=== PATIENT | female | born 1955 | race Caucasian/White ===

== ENCOUNTER 2020-08-23 09:50 | Outpatient (REF) | payer MEDICARE, MEDICAID, SELFPAY | END 2020-08-23 09:51 | disposition home or self-care (01) | LOC: HO.MAMMO 09:50 | PROVIDERS: Visit Provider Nurse Practitioner Family | DX: Z13.89 Encounter for screening for other disorder (principal) ==

== ENCOUNTER 2020-10-25 08:58 | Outpatient (REF) | payer MEDICARE, MEDICAID, SELFPAY ==
[2020-10-25 11:33] LABS: Estimated Average Glucose 217 mg/dL; Hemoglobin A1c % 9.2 %
[2020-10-25 12:33] LABS: Cholesterol 136 mg/dL; HDL Cholesterol 34 mg/dL; LDL Cholesterol Calculated 76 mg/dl; Triglycerides 133 mg/dL
[2020-10-25 12:34] LABS: Thyroid Stimulating Hormone 0.15 uIU/mL (0.32-4.0)
== END 2020-10-25 08:59 | disposition home or self-care (01) ==
LOC: HO.HMGCLDS 08:58
PROVIDERS: PCP Internal Medicine; Visit Provider Internal Medicine
DX: E11.9 Type 2 diabetes mellitus without complications (principal); E03.9 Hypothyroidism, unspecified
CPT/HCPCS: 36415; 80061; 83036; 84443

== ENCOUNTER 2021-01-25 07:20 | Outpatient (REF) | payer MEDICARE, MEDICAID, SELFPAY ==
[2021-01-25 12:11] LABS: Estimated Average Glucose 220 mg/dL; Hemoglobin A1c % 9.3 %
[2021-01-25 12:45] LABS: Glucose Fasting 295 mg/dL (60-99)
== END 2021-01-25 07:21 | disposition home or self-care (01) ==
LOC: HO.HMGCLDS 07:20
PROVIDERS: PCP Internal Medicine; Visit Provider Internal Medicine
DX: E11.65 Type 2 diabetes mellitus with hyperglycemia (principal)
CPT/HCPCS: 36415; 82947; 83036

== ENCOUNTER 2021-04-27 07:01 | Outpatient (REF) | payer MEDICARE, SELFPAY ==
[2021-04-27 11:39] LABS: MANUAL DIFF FLAG NO
[2021-04-27 11:49] LABS: Basophils Absolute Auto 0.1 X10*3/uL (0.0-0.2); Basophils Percent Auto 1.1 % (0-2); Eosinophils Absolute Auto 0.2 X10*3/uL (0.0-0.4); Eosinophils Percent Auto 2.2 % (0-4); Hematocrit 44.1 % (37.0-47.0); Hemoglobin 13.9 g/dl (12.0-16.0); Imm Gran Abs Auto 0.03 X10*3/uL (0.00-0.03); Imm Gran Pct Auto 0.4 % (0.0-0.4); Lymphocytes Percent Auto 24.8 % (20-40); Mean Corpuscular HGB Conc 31.5 g/dl (31.0-35.0); Mean Corpuscular Hemoglobin 28.5 pg (27.0-33.0); Mean Corpuscular Volume 90.4 fL (80.0-98.0); Mean Platelet Volume 10.8 fL (9.4-12.3); Monocytes Absolute Auto 0.5 X10*3/uL (0.1-1.2); Monocytes Percent Auto 6.3 % (2-11); Neutrophils Absolute Auto 5.4 x10*3/uL (2.0-8.3); Neutrophils Percent Auto 65.2 % (45-73); Platelet Count 219 X10*3/uL (160-400); Red Blood Count 4.88 X10*6/uL (4.20-5.50); Red Cell Distribution Width 13.7 % (11.0-16.0); White Blood Count 8.2 X10*3/uL (4.8-10.8)
[2021-04-27 12:06] LABS: Alanine Aminotransferase 35 U/L (0-31); Alkaline Phosphatase 105 U/L (39-117); Anion Gap 12 (12-20); Aspartate Amino Transferase 29 U/L (5-31); Bilirubin Total 0.8 mg/dL (0.0-1.0); Blood Urea Nitrogen 16 mg/dL (9-16); Calcium 9.3 mg/dL (8.4-10.2); Carbon Dioxide 31 mmol/L (22-29); Chloride 103 mmol/L (96-108); Cholesterol 123 mg/dL; Estimated Glomerular Filt Rate > 60; Glucose Fasting 216 mg/dL (60-99); HDL Cholesterol 36 mg/dL; LDL Cholesterol Calculated 69 mg/dl; Potassium 4.5 mmol/L (3.3-5.1); Sodium 141 mmol/L (135-145); Total Protein 7.1 g/dL (6.5-8.0); Triglycerides 94 mg/dL
[2021-04-27 12:19] LABS: Estimated Average Glucose 180 mg/dL; Hemoglobin A1c % 7.9 %
[2021-04-27 12:31] LABS: Thyroid Stimulating Hormone 0.17 uIU/mL (0.32-4.0)
[2021-04-27 18:44] LABS: Creatinine Urine 148.82 mg/dL; Microalbum/Creatinine Ratio Ur 22.1 ug/mg cr
== END 2021-04-27 07:02 | disposition home or self-care (01) ==
LOC: HO.HMGCLDS 07:01
PROVIDERS: Visit Provider Internal Medicine
DX: Z00.00 Encounter for general adult medical examination without abnormal findings (principal); E11.9 Type 2 diabetes mellitus without complications
CPT/HCPCS: 36415; 80053; 80061; 82043; 83036; 84443; 85025

== ENCOUNTER 2021-07-26 07:02 | Outpatient (REF) | payer OTHER, SELFPAY ==
[2021-07-26 11:26] LABS: MANUAL DIFF FLAG NO
[2021-07-26 11:32] LABS: Basophils Absolute Auto 0.1 X10*3/uL (0.0-0.2); Basophils Percent Auto 0.8 % (0-2); Eosinophils Absolute Auto 0.2 X10*3/uL (0.0-0.4); Eosinophils Percent Auto 2.2 % (0-4); Hematocrit 43.3 % (37.0-47.0); Hemoglobin 14.2 g/dl (12.0-16.0); Imm Gran Abs Auto 0.03 X10*3/uL (0.00-0.03); Imm Gran Pct Auto 0.4 % (0.0-0.4); Mean Corpuscular HGB Conc 32.8 g/dl (31.0-35.0); Mean Corpuscular Hemoglobin 28.7 pg (27.0-33.0); Mean Corpuscular Volume 87.7 fL (80.0-98.0); Mean Platelet Volume 10.5 fL (9.4-12.3); Monocytes Absolute Auto 0.6 X10*3/uL (0.1-1.2); Monocytes Percent Auto 7.4 % (2-11); Neutrophils Absolute Auto 4.9 x10*3/uL (2.0-8.3); Neutrophils Percent Auto 63.2 % (45-73); Platelet Count 213 X10*3/uL (160-400); Red Blood Count 4.94 X10*6/uL (4.20-5.50); Red Cell Distribution Width 13.1 % (11.0-16.0); White Blood Count 7.7 X10*3/uL (4.8-10.8)
[2021-07-26 11:49] LABS: Estimated Average Glucose 189 mg/dL; Hemoglobin A1c % 8.2 %
[2021-07-26 11:56] LABS: Alanine Aminotransferase 35 U/L (0-31); Albumin Level 3.9 g/dL (3.5-5.0); Alkaline Phosphatase 114 U/L (39-117); Anion Gap 11 (12-20); Aspartate Amino Transferase 22 U/L (5-31); Bilirubin Total 0.8 mg/dL (0.0-1.0); Blood Urea Nitrogen 13 mg/dL (9-16); Calcium 9.2 mg/dL (8.4-10.2); Carbon Dioxide 30 mmol/L (22-29); Chloride 104 mmol/L (96-108); Cholesterol 127 mg/dL; Estimated Glomerular Filt Rate > 60; Glucose Fasting 241 mg/dL (60-99); HDL Cholesterol 33 mg/dL; LDL Cholesterol Calculated 67 mg/dl; Potassium 4.5 mmol/L (3.3-5.1); Sodium 140 mmol/L (135-145); Triglycerides 136 mg/dL
[2021-07-26 12:16] LABS: Thyroid Stimulating Hormone 0.06 uIU/mL (0.32-4.0)
== END 2021-07-26 07:03 | disposition home or self-care (01) ==
LOC: HO.HMGCLDS 07:02
PROVIDERS: Visit Provider Internal Medicine
DX: Z00.00 Encounter for general adult medical examination without abnormal findings (principal); Z13.0 Encounter for screening for diseases of the blood and blood-forming organs and certain disorders involving the immune mechanism; E11.9 Type 2 diabetes mellitus without complications
CPT/HCPCS: 36415; 80053; 80061; 83036; 84443; 85025

== ENCOUNTER 2021-10-29 07:21 | Outpatient (REF) | payer OTHER, SELFPAY ==
[2021-10-29 11:41] LABS: Estimated Average Glucose 197 mg/dL; Hemoglobin A1c % 8.5 %
[2021-10-29 11:50] LABS: Glucose Fasting 264 mg/dL (60-99)
== END 2021-10-29 07:22 | disposition home or self-care (01) ==
LOC: HO.HMGCLDS 07:21
PROVIDERS: PCP Internal Medicine; Visit Provider Internal Medicine
DX: Z13.29 Encounter for screening for other suspected endocrine disorder (principal); E11.65 Type 2 diabetes mellitus with hyperglycemia
CPT/HCPCS: 36415; 82947; 83036; 84443

== ENCOUNTER 2022-01-25 06:59 | Outpatient (REF) | payer OTHER, SELFPAY ==
[2022-01-25 11:59] LABS: Cholesterol 116 mg/dL; HDL Cholesterol 37 mg/dL; LDL Cholesterol Calculated 62 mg/dl; Triglycerides 89 mg/dL
[2022-01-25 12:20] LABS: Thyroid Stimulating Hormone 0.06 uIU/mL (0.32-4.0)
[2022-01-25 12:59] LABS: Estimated Average Glucose 126 mg/dL
== END 2022-01-25 07:00 | disposition home or self-care (01) ==
LOC: HO.HMGCLDS 06:59
PROVIDERS: PCP Internal Medicine; Visit Provider Internal Medicine
DX: E11.9 Type 2 diabetes mellitus without complications (principal); E78.5 Hyperlipidemia, unspecified; E03.9 Hypothyroidism, unspecified
CPT/HCPCS: 36415; 80061; 83036; 84443

== ENCOUNTER 2022-05-20 06:51 | Outpatient (REF) | payer OTHER, SELFPAY ==
[2022-05-20 12:09] LABS: Estimated Average Glucose 114 mg/dL; Hemoglobin A1c % 5.6 %
[2022-05-20 12:38] LABS: Alanine Aminotransferase 19 U/L (0-31); Albumin Level 3.8 g/dL (3.5-5.0); Alkaline Phosphatase 117 U/L (39-117); Anion Gap 11 (12-20); Aspartate Amino Transferase 17 U/L (5-31); Bilirubin Total 0.7 mg/dL (0.0-1.0); Blood Urea Nitrogen 16 mg/dL (9-16); Calcium 8.9 mg/dL (8.4-10.2); Carbon Dioxide 31 mmol/L (22-29); Chloride 105 mmol/L (96-108); Cholesterol 139 mg/dL; Estimated Glomerular Filt Rate > 60; Glucose Fasting 141 mg/dL (60-99); HDL Cholesterol 40 mg/dL; LDL Cholesterol Calculated 82 mg/dl; Potassium 4.9 mmol/L (3.3-5.1); Sodium 142 mmol/L (135-145); Total Protein 6.6 g/dL (6.5-8.0); Triglycerides 88 mg/dL
== END 2022-05-20 06:52 | disposition home or self-care (01) ==
LOC: HO.HMGCLDS 06:51
PROVIDERS: PCP Internal Medicine; Visit Provider Internal Medicine
DX: N28.9 Disorder of kidney and ureter, unspecified (principal); R73.9 Hyperglycemia, unspecified; E78.5 Hyperlipidemia, unspecified
CPT/HCPCS: 36415; 80053; 80061; 83036

== ENCOUNTER 2022-12-27 09:04 | Outpatient (REF) | payer OTHER, SELFPAY ==
[2022-12-27 11:51] LABS: Estimated Average Glucose 126 mg/dL
[2022-12-27 12:29] LABS: Glucose Fasting 141 mg/dL (60-99)
[2022-12-27 12:49] LABS: Thyroid Stimulating Hormone 0.09 uIU/mL (0.32-4.0)
== END 2022-12-27 09:05 | disposition home or self-care (01) ==
LOC: HO.HMGCLDS 09:04
PROVIDERS: PCP Internal Medicine; Visit Provider Internal Medicine
DX: R73.9 Hyperglycemia, unspecified (principal); E03.9 Hypothyroidism, unspecified
CPT/HCPCS: 36415; 82947; 83036; 84443

== ENCOUNTER 2023-02-10 10:48 | Outpatient (AMB) | payer OTHER, SELFPAY ==
--- NOTE | 2023-02-10 10:40 | MHC.PC.OV ---
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 Allergies codeine [CODEINE] Allergy (Unknown, Verified 02/10/23 10:42) UNKNOWN doxycycline Allergy (Unknown, Verified 02/10/23 10:42) Unknown metformin Allergy (Unknown, Verified 02/10/23 10:42) Diarrhea Medication List - Last Reconciled 02/10/23 by Mich Powers MD blood sugar diagnostic (FreeStyle Lite Strips) Test 2 times daily clopidogrel 75 mg PO DAILY glipizide 5 mg PO DAILY lancets (FreeStyle Lancets) Test 2 times Daily levothyroxine 150 mcg PO DAILY levothyroxine 150 mcg PO DAILY lisinopril 20 mg PO DAILY metoprolol succinate ER 25 mg PO DAILY miscellaneous medical supply 1 ea miscellaneous DAILY simvastatin 40 mg PO DAILY sitagliptin phos-metformin 50-1,000 mg ER (Janumet XR) 1 tab PO .twice a day triamcinolone acetonide 0.1% 1 appl topical BID Tobacco use date assessed: 05/27/22 Fall risk assessment: No Falls in past year Last assessed Fall Risk: 02/10/23 Dental Screening Dental Screen Date: 02/10/23 Did you have a dental visit in the last 12 months?: No Did you have a dental problem in the last 6 months where you did not have access to dental care?: No Was dental information given to patient?: Patient has dentist HPI F/U [phone] HPI Details DM obesity and HTN on rx; doing well PFSH Medical History Morbid obesity Type 2 diabetes mellitus with morbid obesity Post-menopausal Heart attack Stroke Hyperlipidemia Surgical History No pertinent past surgical history Family History Father COPD (chronic obstructive pulmonary disease) Mother Medical history unknown Social History Housing: Apartment Alcohol intake: never Patient Tobacco Use Status: Former Tobacco user Tobacco use type: Cigarette Years Smoked: 20 e-Cigarette/Vaping Use: Never Used Second Hand Smoke Exposure: No service: No Current occupational status: disabled Cognitive needs: No Hearing needs: No Vision needs: No Questionnaire Thrive Questionnaire Date Thrive assessed: 05/27/22 ROOPA-7 AMB Questionnaire ROOPA-7 Date ROOPA - 7 assessed: 05/27/22 Source: Developed by Drs. Domingo Brink, Bryanna Wolf, Larry Lawrence and colleagues, with an educational yesenia from [employer]. Review of Systems Const Denies chills, Denies headache(s) and Denies weight loss ENT Denies headache(s) Card Denies chest pain, Denies syncope, Denies irregular heart rhythm and Denies dyspnea Resp Denies chest congestion, Denies cough and Denies dyspnea GI Denies abdominal pain, Denies change in stool character, Denies nausea and Denies vomiting Musc Denies deformity and Denies joint swelling Neuro Denies syncope and Denies headache(s) Physical exam (Primary Care) BMI result Body Mass Index 58.5 Tobacco/Smoking Status: Tobacco use Status Tobacco use date assessed 05/27/22 02/10/23 10:40 Patient Tobacco Use Status Former Tobacco user 02/10/23 10:40 Tobacco use type Cigarette 02/10/23 10:40 e-Cigarette/Vaping Use Never Used 02/10/23 10:40 Thrive Assessment: Date of Thrive Assessment Date Thrive assessed 05/27/22 02/10/23 10:40 Telehealth Telehealth Location of provider rendering services: practice address Location of patient: address on file Patient Identification confirmed using: Name, : Yes Telehealth method: voice only Patient verbally consented to treatment: Yes Patient verbally consented to billing insurance company: Yes Patient informed of any privacy concerns related to visit: Yes Minutes spent on Phone/Video with Pt.: 15 (telephone) Assessment and Plan Assessment & Plan (1) Morbid obesity: Code(s): E66.01 - Morbid (severe) obesity due to excess calories Plan: stable (2) Type 2 diabetes mellitus with morbid obesity: Code(s): E11.69 - Type 2 diabetes mellitus with other specified complication; E66.01 - Morbid (severe) obesity due to excess calories Plan: stable; do labs (3) Hypertension: Code(s): I10 - Essential (primary) hypertension Qualifiers: Hypertension type: unspecified Qualified Code(s): I10 - Essential (primary) hypertension Plan: stable; same rx Orders: Orders Hemoglobin A1c Today R73.9 - Hyperglycemia, unspecified Lipid Panel Today E78.5 - Hyperlipidemia, unspecified Glucose Fasting Today R73.9 - Hyperglycemia, unspecified Medications: New albuterol sulfate 90 mcg/actuation (Ventolin HFA) 2 puffs inhalation Q4-6H PRN 8.5 grams 8RF shortness of breath or wheezing Refilled triamcinolone acetonide 0.1% 1 appl topical BID 30 grams 5RF Coding Level of Care Code Tele Est Pt Level 4 (02944) Diagnoses Morbid obesity E66.01 Type 2 diabetes mellitus with morbid obesity E11.69; E66.01 Hypertension, unspecified type I10 Hypertension type: unspecified
[2023-02-10 10:41] VITALS: BMI 58.5
== END 2023-02-10 11:15 | disposition home or self-care (01) ==
LOC: HO.HMGH 10:48
PROVIDERS: PCP Internal Medicine; Visit Provider Internal Medicine
DX: E11.69 Type 2 diabetes mellitus with other specified complication (principal); E66.01 Morbid (severe) obesity due to excess calories; Z68.43 Body mass index [BMI] 50.0-59.9, adult; I10 Essential (primary) hypertension
CPT/HCPCS: 99442

== ENCOUNTER 2023-06-16 06:30 | Outpatient (REF) | payer OTHER, SELFPAY ==
[2023-06-16 11:03] LABS: Cholesterol 119 mg/dL (<200); Glucose Fasting 169 mg/dL (60-99); HDL Cholesterol 37 mg/dL (>40); LDL Cholesterol Calculated 57 mg/dL (<100); Triglycerides 128 mg/dL (<150)
[2023-06-16 11:16] LABS: Estimated Average Glucose 148 mg/dL; Hemoglobin A1c % 6.8 % (<6.0)
== END 2023-06-16 06:31 | disposition home or self-care (01) ==
LOC: HO.HMGCLDS 06:30
PROVIDERS: PCP Internal Medicine; Visit Provider Internal Medicine
DX: E78.5 Hyperlipidemia, unspecified (principal); R73.9 Hyperglycemia, unspecified
CPT/HCPCS: 36415; 80061; 82947; 83036

== ENCOUNTER 2023-06-18 12:34 | Outpatient (AMB) | payer OTHER, SELFPAY ==
[2023-06-18 12:36] VITALS: BP 118/72; PULSE 66; O2SAT 95; BMI 63.1
--- NOTE | 2023-06-18 12:36 | MHC.PC.OV ---
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 Accompanied by: Grand Child/ BUSINESS PROFESSOR Allergies codeine [CODEINE] Allergy (Unknown, Verified 06/18/23 12:39) UNKNOWN doxycycline Allergy (Unknown, Verified 06/18/23 12:39) Unknown metformin Allergy (Unknown, Verified 06/18/23 12:39) Diarrhea Medication List - Last Reconciled 06/19/23 by Mich Powres MD albuterol sulfate 90 mcg/actuation (Ventolin HFA) 2 puffs inhalation Q4-6H PRN blood sugar diagnostic (FreeStyle Lite Strips) Test 2 times daily chair, wheel (Wheel chair) powered wheelchair clopidogrel 75 mg PO DAILY glipizide 5 mg PO DAILY lancets (FreeStyle Lancets) Test 2 times Daily levothyroxine 150 mcg PO DAILY lisinopril 20 mg PO DAILY metoprolol succinate ER 25 mg PO DAILY miscellaneous medical supply 1 ea miscellaneous DAILY simvastatin 40 mg PO DAILY sitagliptin phos-metformin 50-1,000 mg ER (Janumet XR) 1 tab PO .twice a day triamcinolone acetonide 0.1% 1 appl topical BID Tobacco use date assessed: 06/18/23 Fall risk assessment: 1 Fall in past year Last assessed Fall Risk: 06/18/23 Dental Screening Dental Screen Date: 06/18/23 Did you have a dental visit in the last 12 months?: No Did you have a dental problem in the last 6 months where you did not have access to dental care?: No Was dental information given to patient?: Patient declined HPI ANNUAL PE- see comments HPI Details DM hypothyroidism and hypertension; has gained weight and BS hasincreased [facility] Medical History Morbid obesity Type 2 diabetes mellitus with morbid obesity Post-menopausal Heart attack Stroke Hyperlipidemia Surgical History No pertinent past surgical history Family History Father COPD (chronic obstructive pulmonary disease) Mother Medical history unknown Social History Housing: Apartment Alcohol intake: never Patient Tobacco Use Status: Former Tobacco user Tobacco use type: Cigarette Years Smoked: 20 e-Cigarette/Vaping Use: Never Used Second Hand Smoke Exposure: No service: No Current occupational status: disabled Cognitive needs: Yes Hearing needs: No Vision needs: Yes Questionnaire PHQ-9 Over the last 2 weeks, how often have you been bothered by any of the following problems? 1. Little interest or pleasure in doing things: not at all 2. Feeling down, depressed, or hopeless: not at all 3. Trouble falling or staying asleep, or sleeping too much: not at all 4. Feeling tired or having little energy: not at all 5. Poor appetite or overeating: not at all 6. Feeling bad about yourself - or that you are a failure or have let yourself or your family down: not at all 7. Trouble concentrating on things, such as reading the newspaper or watching television: not at all 8. Moving or speaking so slowly that other people could have noticed. Or the opposite - being so fidgety or restless that you have been moving around a lot more than usual: not at all 9. Thoughts that you would be better off or of hurting yourself in some way: not at all Total score: 0 Source: Developed by Drs. Domingo Brink, Bryanna Wolf, Larry Lawrence and colleagues, with an educational yesenia from [employer]. Thrive Questionnaire Date Thrive assessed: 06/18/23 I am a: Patient What is your living situation today?: I have a steady place to live Within the past 12 months, did the food you bought not last and you didn't have the money to get more?: Never true Within the past 12 months, did you worry whether your food would run out before you got money to buy more?: Never true Do you have trouble paying for medicines?: No Do you have trouble getting transportation to medical appointments?: No Do you have trouble paying your heating and electricity bill?: No Do you have trouble taking care of your child, family member or friend?: No Do you have trouble with day-to-day activities such as bathing, preparing meals, shopping, managing finances, etc.?: Yes Are you currently unemployed and looking for a job?: No Are you interested in more education?: No Please select the resources that you would like help with: None Currently or been in a relationship where the following occur: no concerns reported THRIVE Score: 0 AUDIT C Alcohol Use Questionnaire (AUDIT-C) 1. How often do you have a drink containing alcohol?: Never Total Score: 0 ROOPA-7 AMB Questionnaire ROOPA-7 Date ROOPA - 7 assessed: 06/18/23 Feeling nervous, anxious, or on edge: 0 = Not at all Not being able to stop or control worryin = Not at all Worrying too much about different things: 0 = Not at all Trouble relaxin = Not at all Being so restless that it is hard to sit still: 0 = Not at all Becoming easily annoyed or irritable: 0 = Not at all Feeling afraid as if something awful might happen: 0 = Not at all Total ROOPA-7 score (0-4 normal; 5-9 mild; 10-14 moderate; 15-21 severe): 0 Source: Developed by Drs. Domingo Brink, Bryanna Wolf, Larry Lawrence and colleagues, with an educational yesenia from [employer]. Review of Systems Const Denies chills, Denies fatigue, Denies headache(s) and Denies weight loss Eyes Denies change in vision, Denies diplopia and Denies eye pain ENT Denies vertigo, Denies dizziness, Denies headache(s) and Denies nasal discharge Card Denies chest pain, Denies rapid heart rate and Denies dyspnea on exertion Resp Denies chest congestion, Denies cough, Denies pain with cough and Denies dyspnea on exertion GI Denies abdominal pain, Denies hematochezia and Denies change in bowel habits Musc Denies myalgias, Denies arthralgias and Denies joint swelling Skin/Breast Denies lesions and Denies unusual bruising Neuro Denies vertigo, Denies dizziness, Denies headache(s) and Denies focal weakness Endo Denies fatigue Physical exam (Primary Care) Vital Signs: Last Vital Signs Pulse 66 06/18/23 12:36 BP 118/72 06/18/23 12:36 Pulse Ox 95 06/18/23 12:36 BMI result Body Mass Index 63.1 Tobacco/Smoking Status: Tobacco use Status Tobacco use date assessed 06/18/23 06/18/23 12:45 Patient Tobacco Use Status Former Tobacco user 06/18/23 12:45 Tobacco use type Cigarette 06/18/23 12:45 e-Cigarette/Vaping Use Never Used 06/18/23 12:45 PHQ-9: PHQ-9 Score PHQ-9: Total score 0 06/18/23 12:57 Thrive Assessment: Date of Thrive Assessment Date Thrive assessed 06/18/23 06/18/23 12:45 Currently or been in a relationship where the following occur: no concerns reported Const General: cooperative, healthy appearing and no acute distress Orientation/consciousness: oriented to person, oriented to place and oriented to time HENMT Head: Yes normal to inspection, Yes normocephalic and Yes atraumatic Mouth: Normal oral and palatal mucosa present and tongue normal Throat: Yes posterior oropharynx normal and Yes uvula midline Eyes General: appearance normal, both eyes and all related structures Neck Neck: Yes normal visual inspection, Yes full ROM and Yes no lymphadenopathy Thyroid: Thyroid normal Carotids: normal carotid upstroke Chest Chest palpation & inspection: normal inspection of the chest Resp Effort & Inspection: normal respiratory effort and able to speak in complete sentences Auscultation: clear to auscultation bilaterally Cardio Jugular venous distension: no JVD Palpation: normal PMI Rate: regular rate Rhythm: regular rhythm Heart sounds: S1 normal heart sound present and S2 normal heart sound present GI Inspection: Yes normal to inspection Palpation (GI): Soft to palpation and No hepatosplenomegaly present Auscultation: normal bowel sounds General: Yes no CVA tenderness Back/Spine/Pelvis Back: no CVA tenderness Skin General skin exam: no rashes or lesions noted Neuro General: oriented to person, oriented to place and oriented to time Extrem General: Yes normal to inspection and Yes full ROM Assessment and Plan Assessment & Plan (1) Adult general medical exam: Code(s): Z00.00 - Encounter for general adult medical examination without abnormal findings Plan: needs to lose weight (2) Type 2 diabetes mellitus with morbid obesity: Code(s): E11.69 - Type 2 diabetes mellitus with other specified complication; E66.01 - Morbid (severe) obesity due to excess calories Plan: stable; some weight loss needed (3) Hypertension: Code(s): I10 - Essential (primary) hypertension Qualifiers: Hypertension type: unspecified Qualified Code(s): I10 - Essential (primary) hypertension Plan: stable; same rx (4) Hypothyroid: Code(s): E03.9 - Hypothyroidism, unspecified Qualifiers: Hypothyroidism type: unspecified Qualified Code(s): E03.9 - Hypothyroidism, unspecified Plan: do labs Orders: Orders Lipid Panel Today Z13.220 - Encounter for screening for lipoid disorders Microalbumin, Random (w Creat) Today E11.69 - Type 2 diabetes mellitus with other specified complication, E66.01 - Morbid (severe) obesity due to excess calories Thyroid Stimulating Hormone Today Z13.29 - Encounter for screening for other suspected endocrine disorder Complete Blood Count Auto Diff Today Z13.0 - Encounter for screening for diseases of the blood and blood-forming organs and certain disorders involving the immune mechanism Comprehensive [place]helps. Panel Fast Today Z13.9 - Encounter for screening, unspecified Hemoglobin A1c Today R73.9 - Hyperglycemia, unspecified Medications: Refilled triamcinolone acetonide 0.1% 1 appl topical BID 30 grams 5RF Coding Level of Care Code Est Pt Prev Care >65y(49479) Diagnoses Adult general medical exam Z00.00 Type 2 diabetes mellitus with morbid obesity E11.69; E66.01 Hypertension, unspecified type I10 Hypertension type: unspecified Hypothyroidism, unspecified type E03.9 Hypothyroidism type: unspecified
== END 2023-06-18 13:11 | disposition home or self-care (01) ==
PROVIDERS: PCP Internal Medicine; Visit Provider Internal Medicine
DX: Z00.00 Encounter for general adult medical examination without abnormal findings (principal); E11.69 Type 2 diabetes mellitus with other specified complication; I10 Essential (primary) hypertension; E03.9 Hypothyroidism, unspecified
CPT/HCPCS: 99397

== ENCOUNTER 2023-09-22 07:19 | Outpatient (REF) | payer OTHER, SELFPAY ==
[2023-09-22 10:06] LABS: MANUAL DIFF FLAG NO
[2023-09-22 10:14] LABS: Estimated Average Glucose 151 mg/dL; Hemoglobin A1c % 6.9 % (<6.0)
[2023-09-22 10:15] LABS: Basophils Absolute Auto 0.1 X10*3/uL (0.0-0.2); Basophils Percent Auto 0.6 % (0-2); Eosinophils Absolute Auto 0.2 X10*3/uL (0.0-0.4); Eosinophils Percent Auto 1.7 % (0-4); Hematocrit 42.6 % (37.0-47.0); Hemoglobin 13.8 g/dl (12.0-16.0); Imm Gran Abs Auto 0.04 X10*3/uL (0.00-0.03); Imm Gran Pct Auto 0.4 % (0.0-0.4); Lymphocytes Percent Auto 19.9 % (20-40); Mean Corpuscular HGB Conc 32.4 g/dl (31.0-35.0); Mean Corpuscular Hemoglobin 28.7 pg (27.0-33.0); Mean Corpuscular Volume 88.6 fL (80.0-98.0); Mean Platelet Volume 10.3 fL (9.4-12.3); Monocytes Absolute Auto 0.7 X10*3/uL (0.1-1.2); Monocytes Percent Auto 6.8 % (2-11); Neutrophils Absolute Auto 7.1 x10*3/uL (2.0-8.3); Neutrophils Percent Auto 70.6 % (45-73); Platelet Count 214 X10*3/uL (160-400); Red Blood Count 4.81 X10*6/uL (4.20-5.50); Red Cell Distribution Width 13.4 % (11.0-16.0); White Blood Count 10.1 X10*3/uL (4.8-10.8)
[2023-09-22 10:48] LABS: Alanine Aminotransferase 30 U/L (0-31); Albumin Level 3.8 g/dL (3.5-5.0); Alkaline Phosphatase 105 U/L (39-117); Anion Gap 13 (12-20); Aspartate Amino Transferase 26 U/L (5-31); Bilirubin Total 0.9 mg/dL (0.0-1.0); Blood Urea Nitrogen 10 mg/dL (9-16); Carbon Dioxide 28 mmol/L (22-29); Chloride 103 mmol/L (96-108); Cholesterol 129 mg/dL (<200); Estimated Glomerular Filt Rate > 60; Glucose Fasting 182 mg/dL (60-99); HDL Cholesterol 37 mg/dL (>40); LDL Cholesterol Calculated 73 mg/dL (<100); Potassium 4.3 mmol/L (3.3-5.1); Sodium 140 mmol/L (135-145); Triglycerides 96 mg/dL (<150)
[2023-09-22 10:51] LABS: Thyroid Stimulating Hormone 0.27 uIU/mL (0.32-4.0)
[2023-09-22 16:43] LABS: Creatinine Urine 141.66 mg/dL; Microalbum/Creatinine Ratio Ur 39.5 ug/mg cr (<30)
== END 2023-09-22 07:20 | disposition home or self-care (01) ==
LOC: HO.HMGCLDS 07:19
PROVIDERS: PCP Internal Medicine; Visit Provider Internal Medicine
DX: R73.9 Hyperglycemia, unspecified (principal); Z13.220 Encounter for screening for lipoid disorders; Z13.29 Encounter for screening for other suspected endocrine disorder; Z13.0 Encounter for screening for diseases of the blood and blood-forming organs and certain disorders involving the immune mechanism; Z13.9 Encounter for screening, unspecified; E66.01 Morbid (severe) obesity due to excess calories
CPT/HCPCS: 36415; 80053; 80061; 82043; 82570; 83036; 84443; 85025

== ENCOUNTER 2023-09-24 13:46 | Outpatient (AMB) | payer OTHER, SELFPAY ==
--- NOTE | 2023-09-24 13:47 | A.OFFPC_ITS ---
Intake Visit Reasons: 3 month f/u Inspector And Clipper Required: No Information Interpreted: non-clinical & clinical Radiology Administrator: Not Required per policy Accompanied by: Self / Same As Patient Allergies codeine [CODEINE] Allergy (Unknown, Verified 09/24/23 13:48) UNKNOWN doxycycline Allergy (Unknown, Verified 09/24/23 13:48) Unknown metformin Allergy (Unknown, Verified 09/24/23 13:48) Diarrhea Medication List - Last Reconciled 09/25/23 by Mich Powers MD albuterol sulfate 90 mcg/actuation (Ventolin HFA) 2 puffs inhalation Q4-6H PRN blood sugar diagnostic (FreeStyle Lite Strips) Test 2 times daily chair, wheel (Wheel chair) powered wheelchair clopidogrel 75 mg PO DAILY glipizide 5 mg PO DAILY lancets (FreeStyle Lancets) Test 2 times Daily levothyroxine 150 mcg PO DAILY lisinopril 20 mg PO DAILY metoprolol succinate ER 25 mg PO DAILY miscellaneous medical supply 1 ea miscellaneous DAILY simvastatin 40 mg PO DAILY sitagliptin phos-metformin 50-1,000 mg ER (Janumet XR) 1 tab PO .twice a day triamcinolone acetonide 0.1% 1 appl topical BID Tobacco use date assessed: 06/18/23 Fall risk assessment: No Falls in past year Last assessed Fall Risk: 09/24/23 Dental Screening Dental Screen Date: 06/18/23 HPI 3 month f/u HPI Details DM hypothyroidism and hypertension; doing well and compliant; A1C fine PFSH Medical History Morbid obesity Type 2 diabetes mellitus with morbid obesity Post-menopausal Heart attack Stroke Hyperlipidemia Surgical History No pertinent past surgical history Family History Father COPD (chronic obstructive pulmonary disease) Mother Medical history unknown Social History Housing: Apartment Alcohol intake: never Patient Tobacco Use Status: Former Tobacco user Tobacco use type: Cigarette Years Smoked: 20 e-Cigarette/Vaping Use: Never Used Second Hand Smoke Exposure: No service: No Current occupational status: disabled Cognitive needs: Yes Hearing needs: No Vision needs: Yes Questionnaire Thrive Questionnaire Date Thrive assessed: 06/18/23 ROOPA-7 AMB Questionnaire ROOPA-7 Date ROOPA - 7 assessed: 06/18/23 Source: Developed by Drs. Domingo Brink, Bryanna Wolf, Larry Lawrence and colleagues, with an educational yesenia from [employer]. Review of Systems Const Denies chills, Denies headache(s) and Denies weight loss ENT Denies headache(s) Card Denies chest pain, Denies syncope, Denies irregular heart rhythm and Denies dyspnea Resp Denies chest congestion, Denies cough and Denies dyspnea GI Denies abdominal pain, Denies change in stool character, Denies nausea and Denies vomiting Musc Denies deformity and Denies joint swelling Neuro Denies syncope and Denies headache(s) Physical exam (Primary Care) Tobacco/Smoking Status: Tobacco use Status Tobacco use date assessed 06/18/23 09/24/23 13:48 Patient Tobacco Use Status Former Tobacco user 09/24/23 13:48 Tobacco use type Cigarette 09/24/23 13:48 e-Cigarette/Vaping Use Never Used 09/24/23 13:48 Thrive Assessment: Date of Thrive Assessment Date Thrive assessed 06/18/23 09/24/23 13:48 Telehealth Telehealth Telehealth Platform: Telephone Location of provider rendering services: practice address Location of patient: address on file Patient Identification confirmed using: Name, : Yes Telehealth method: voice only Patient verbally consented to treatment: Yes Patient verbally consented to billing insurance company: Yes Patient informed of any privacy concerns related to visit: Yes Minutes spent on Phone/Video with Pt.: 15 (telephone) Assessment and Plan Assessment & Plan (1) Type 2 diabetes mellitus with morbid obesity: Code(s): E11.69 - Type 2 diabetes mellitus with other specified complication; E66.01 - Morbid (severe) obesity due to excess calories Plan: stable; same rx (2) Hypothyroid: Code(s): E03.9 - Hypothyroidism, unspecified Qualifiers: Hypothyroidism type: unspecified Qualified Code(s): E03.9 - Hypothyroidism, unspecified Plan: stable; same rx (3) Hypertension: Code(s): I10 - Essential (primary) hypertension Qualifiers: Hypertension type: unspecified Qualified Code(s): I10 - Essential (primary) hypertension Plan: stable;same rx Orders: Orders Hemoglobin A1c Today R73.9 - Hyperglycemia, unspecified Glucose Fasting Today R73.9 - Hyperglycemia, unspecified Lipid Panel Today Z13.220 - Encounter for screening for lipoid disorders Coding Level of Care Code Tele Est Pt Level 4 (95413) Diagnoses Type 2 diabetes mellitus with morbid obesity E11.69; E66.01 Hypothyroidism, unspecified type E03.9 Hypothyroidism type: unspecified Hypertension, unspecified type I10 Hypertension type: unspecified
== END 2023-09-24 16:47 | disposition home or self-care (01) ==
LOC: HO.HMGH 13:46
PROVIDERS: PCP Internal Medicine; Visit Provider Internal Medicine
DX: E11.69 Type 2 diabetes mellitus with other specified complication (principal); E66.01 Morbid (severe) obesity due to excess calories; E03.9 Hypothyroidism, unspecified; I10 Essential (primary) hypertension
CPT/HCPCS: 99442

== ENCOUNTER 2023-12-18 06:59 | Outpatient (REF) | payer OTHER, SELFPAY ==
[2023-12-18 10:45] LABS: Cholesterol 140 mg/dL (<200); Estimated Average Glucose 148 mg/dL; Glucose Fasting 161 mg/dL (60-99); HDL Cholesterol 35 mg/dL (>40); Hemoglobin A1C 172.8878 umol/L; Hemoglobin A1c % 6.8 % (<6.0); LDL Cholesterol Calculated 80 mg/dL (<100); Total Hemoglobin (HGBA1C) 3416.5751 umol/L; Triglycerides 127 mg/dL (<150)
== END 2023-12-18 07:00 | disposition home or self-care (01) ==
LOC: HO.HMGCLDS 06:59
PROVIDERS: PCP Internal Medicine; Visit Provider Internal Medicine
DX: R73.9 Hyperglycemia, unspecified (principal); Z13.220 Encounter for screening for lipoid disorders
CPT/HCPCS: 36415; 80061; 82947; 83036

== ENCOUNTER 2023-12-22 14:17 | Outpatient (AMB) | payer OTHER, SELFPAY ==
[2023-12-22 14:18] VITALS: PULSE 73; O2SAT 93; BMI 61.1
--- NOTE | 2023-12-22 14:18 | A.OFFPC_ITS ---
Vital Signs 12/22/23 14:18 Height 5 ft 3 in Weight 345 lb BMI 61.1 BP not taken reason Patient Refused Pulse 73 Pulse Source Pulse Oximeter Pulse Oximetry (%) 93 Oxygen Delivery Method Room Air Intake Visit Reasons: 3 month f/u Tester Operator Helper Required: No Accompanied by: Self / Same As Patient Allergies codeine [CODEINE] Allergy (Unknown, Verified 12/22/23 14:18) UNKNOWN doxycycline Allergy (Unknown, Verified 12/22/23 14:18) Unknown metformin Allergy (Unknown, Verified 12/22/23 14:18) Diarrhea Medication List - Last Reconciled 12/23/23 by Mich Powers MD albuterol sulfate 90 mcg/actuation (Ventolin HFA) 2 puffs inhalation Q4-6H PRN blood sugar diagnostic (FreeStyle Lite Strips) Test 2 times daily chair, wheel (Wheel chair) powered wheelchair clopidogrel 75 mg PO DAILY glipizide 5 mg PO DAILY lancets (FreeStyle Lancets) Test 2 times Daily levothyroxine 150 mcg PO DAILY lisinopril 20 mg PO DAILY metoprolol succinate ER 25 mg PO DAILY miscellaneous medical supply 1 ea miscellaneous DAILY simvastatin 40 mg PO DAILY sitagliptin phos-metformin 50-1,000 mg ER (Janumet XR) 1 tab PO .twice a day triamcinolone acetonide 0.1% 1 appl topical BID Tobacco use date assessed: 06/18/23 Fall risk assessment: No Falls in past year Last assessed Fall Risk: 12/22/23 Dental Screening Dental Screen Date: 06/18/23 HPI 3 month f/u HPI Details diabetes hypertension and hyperlipidemia; morbidly obese COUNTS INCLUDE 234 BEDS AT THE [facility] Medical History Morbid obesity Type 2 diabetes mellitus with morbid obesity Post-menopausal Heart attack Stroke Hyperlipidemia Surgical History No pertinent past surgical history Family History Father COPD (chronic obstructive pulmonary disease) Mother Medical history unknown Social History Housing: Apartment Alcohol intake: never Patient Tobacco Use Status: Former Tobacco user Tobacco use type: Cigarette Years Smoked: 20 e-Cigarette/Vaping Use: Never Used Second Hand Smoke Exposure: No service: No Current occupational status: disabled Cognitive needs: Yes Hearing needs: No Vision needs: Yes Questionnaire PHQ-9 Over the last 2 weeks, how often have you been bothered by any of the following problems? 1. Little interest or pleasure in doing things: not at all 2. Feeling down, depressed, or hopeless: not at all 3. Trouble falling or staying asleep, or sleeping too much: not at all 4. Feeling tired or having little energy: not at all 5. Poor appetite or overeating: not at all 6. Feeling bad about yourself - or that you are a failure or have let yourself or your family down: not at all 7. Trouble concentrating on things, such as reading the newspaper or watching television: not at all 8. Moving or speaking so slowly that other people could have noticed. Or the opposite - being so fidgety or restless that you have been moving around a lot more than usual: not at all 9. Thoughts that you would be better off or of hurting yourself in some way: not at all Total score: 0 Source: Developed by Drs. Domingo Brink, Bryanna Wolf, Larry Lawrence and colleagues, with an educational yesenia from [employer]. Thrive Questionnaire Date Thrive assessed: 06/18/23 Are you currently unemployed and looking for a job?: No AUDIT C Alcohol Use Questionnaire (AUDIT-C) 1. How often do you have a drink containing alcohol?: Never Total Score: 0 ROOPA-7 AMB Questionnaire ROOPA-7 Date ROOPA - 7 assessed: 06/18/23 Source: Developed by Drs. Domingo Brink, Bryanna Wolf, Larry Lawrence and colleagues, with an educational yesenia from [employer]. Review of Systems Const Denies chills, Denies headache(s) and Denies weight loss ENT Denies headache(s) Card Denies chest pain, Denies syncope, Denies irregular heart rhythm and Denies dyspnea Resp Denies chest congestion, Denies cough and Denies dyspnea GI Denies abdominal pain, Denies change in stool character, Denies nausea and Denies vomiting Musc Denies deformity and Denies joint swelling Neuro Denies syncope and Denies headache(s) Physical exam (Primary Care) Vital Signs: Last Vital Signs Pulse 73 12/22/23 14:18 Pulse Ox 93 12/22/23 14:18 Oxygen Delivery Method Room Air 12/22/23 14:18 BMI result Body Mass Index 61.1 Tobacco/Smoking Status: Tobacco use Status Tobacco use date assessed 06/18/23 12/22/23 14:25 Patient Tobacco Use Status Former Tobacco user 12/22/23 14:25 Tobacco use type Cigarette 12/22/23 14:25 e-Cigarette/Vaping Use Never Used 12/22/23 14:25 PHQ-9: PHQ-9 Score PHQ-9: Total score 0 12/22/23 14:25 Thrive Assessment: Date of Thrive Assessment Date Thrive assessed 06/18/23 12/22/23 14:25 Const General: cooperative, comfortable, no acute distress and alert Neck Neck: Yes no lymphadenopathy Thyroid: Thyroid normal Resp Effort & Inspection: normal respiratory effort Auscultation: clear to auscultation bilaterally Percussion: percussion normal Cardio Jugular venous distension: no JVD Palpation: normal PMI Rate: regular rate Rhythm: regular rhythm Heart sounds: S1 normal heart sound present and S2 normal heart sound present GI Inspection: Yes normal to inspection Palpation (GI): No hepatosplenomegaly present Skin General skin exam: no rashes or lesions noted Extrem General: Yes no clubbing, cyanosis or edema Coding Level of Care Code Est Pt Level 4 (40175) Diagnoses Type 2 diabetes mellitus with morbid obesity E11.69; E66.01 Hypertension, unspecified type I10 Hypertension type: unspecified Hyperlipidemia, unspecified hyperlipidemia type E78.5 Hyperlipidemia type: unspecified Assessment & Plan Assessment & Plan (1) Type 2 diabetes mellitus with morbid obesity: Code(s): E11.69 - Type 2 diabetes mellitus with other specified complication; E66.01 - Morbid (severe) obesity due to excess calories Category: Medical Plan: do labs; same rx (2) Hypertension: Code(s): I10 - Essential (primary) hypertension Category: Medical Qualifiers: Hypertension type: unspecified Qualified Code(s): I10 - Essential (primary) hypertension Plan: stable; same rx (3) Hyperlipidemia: Code(s): E78.5 - Hyperlipidemia, unspecified Category: Medical Qualifiers: Hyperlipidemia type: unspecified Qualified Code(s): E78.5 - Hyperlipidemia, unspecified Plan: stable; same rx Orders: Orders Complete Blood Count Auto Diff Today Z13.0 - Encounter for screening for diseases of the blood and blood-forming organs and certain disorders involving the immune mechanism Microalbumin, Random (w Creat) Today E11.69 - Type 2 diabetes mellitus with other specified complication, E66.01 - Morbid (severe) obesity due to excess calories Lipid Panel Today Z13.220 - Encounter for screening for lipoid disorders Comprehensive [place]. Panel Fast Today Z13.9 - Encounter for screening, unspecified Hemoglobin A1c Today R73.9 - Hyperglycemia, unspecified
== END 2023-12-22 15:39 | disposition home or self-care (01) ==
PROVIDERS: PCP Internal Medicine; Visit Provider Internal Medicine
DX: E11.69 Type 2 diabetes mellitus with other specified complication (principal); E66.813 Obesity, class 3; Z68.44 Body mass index [BMI] 60.0-69.9, adult; I10 Essential (primary) hypertension; E78.5 Hyperlipidemia, unspecified

== ENCOUNTER → 2023-12-22 14:17 | Outpatient (BNVA) | payer OTHER, SELFPAY | PROVIDERS: PCP Internal Medicine; Visit Provider Internal Medicine | DX: E11.69 Type 2 diabetes mellitus with other specified complication (principal); E66.01 Morbid (severe) obesity due to excess calories; I10 Essential (primary) hypertension; E78.5 Hyperlipidemia, unspecified | CPT/HCPCS: 96127; 99212 ==

== ENCOUNTER 2024-06-09 10:26 | Outpatient (AMB) | payer OTHER, SELFPAY ==
--- NOTE | 2024-06-09 10:37 | A.OFFPC_ITS ---
Vital Signs 06/09/24 10:39 Height 5 ft 3 in Weight 346 lb BMI 61.3 BP 124/84 Blood Pressure Location Lt brachial Position Sitting Pulse 73 Pulse Source Pulse Oximeter Temp 97.2 F Temp Source Temporal Artery Scan Pulse Oximetry (%) 97 Oxygen Delivery Method Room Air Intake Visit Reasons: Pre-Op Appointment Intake Note: Patient is here for a Pre-op for Cataract sugery scheduled with Dr Vigil (Eye and Lasik) on left eye 06/22/24. Lanolin Plant Operator Required: No It Program Engagement Director: Present Accompanied by: Grand Child Allergies codeine [CODEINE] Allergy (Unknown, Verified 06/09/24 10:51) UNKNOWN doxycycline Allergy (Unknown, Verified 06/09/24 10:51) Unknown metformin Allergy (Unknown, Verified 06/09/24 10:51) Diarrhea Medication List - Last Reconciled 06/09/24 by Meli Hicks PA-C albuterol sulfate 90 mcg/actuation (Ventolin HFA) 2 puffs inhalation Q4-6H PRN blood sugar diagnostic (FreeStyle Lite Strips) Test 2 times daily chair, wheel (Wheel chair) powered wheelchair clopidogrel 75 mg PO DAILY glipizide 5 mg PO DAILY lancets (FreeStyle Lancets) Test 2 times Daily levothyroxine 150 mcg PO DAILY lisinopril 20 mg PO DAILY metoprolol succinate ER 25 mg PO DAILY miscellaneous medical supply 1 ea miscellaneous DAILY simvastatin 40 mg PO DAILY sitagliptin phos-metformin 50-1,000 mg ER (Janumet XR) 1 tab PO .twice a day triamcinolone acetonide 0.1% 1 appl topical BID Tobacco use date assessed: 06/09/24 Fall risk assessment: No Falls in past year Last assessed Fall Risk: 06/09/24 Dental Screening Dental Screen Date: 06/09/24 Did you have a dental visit in the last 12 months?: No Did you have a dental problem in the last 6 months where you did not have access to dental care?: No Was dental information given to patient?: No HPI Pre-Op Appointment HPI Details 68 year old female with past history of hyperlipidemia, diabetes mellitus, hypothyroid, hypertension, morbid obesity last seen 12/[address] Powers coming in for preoperative exam. Dr Vigil (Eye and Lasik) on left eye cataract 4/15/25. Patient has previous history of stroke and SD without history of CHF. Diabetes mellitus: Last A1c 6.8% repeat A1c ordered with pre-op blood work. Hypertension: blood pressure well controlled on current medication regimen. [facility] Medical History (Updated 06/09/24 @ 10:59 by Meli Hicks PA-C) Morbid obesity Type 2 diabetes mellitus with morbid obesity Post-menopausal Heart attack Stroke Hyperlipidemia Surgical History No pertinent past surgical history Family History Father COPD (chronic obstructive pulmonary disease) Mother Medical history unknown Social History Housing: Apartment Alcohol intake: never Patient Tobacco Use Status: Former Tobacco user Tobacco use type: Cigarette Years Smoked: 20 e-Cigarette/Vaping Use: Never Used Second Hand Smoke Exposure: Yes service: No Current occupational status: disabled Cognitive needs: Yes (Cane) Hearing needs: No Vision needs: Yes (Glasses) Questionnaire PHQ-9 Over the last 2 weeks, how often have you been bothered by any of the following problems? 1. Little interest or pleasure in doing things: not at all 2. Feeling down, depressed, or hopeless: not at all 3. Trouble falling or staying asleep, or sleeping too much: not at all 4. Feeling tired or having little energy: not at all 5. Poor appetite or overeating: not at all 6. Feeling bad about yourself - or that you are a failure or have let yourself or your family down: not at all 7. Trouble concentrating on things, such as reading the newspaper or watching television: not at all 8. Moving or speaking so slowly that other people could have noticed. Or the opposite - being so fidgety or restless that you have been moving around a lot more than usual: not at all 9. Thoughts that you would be better off or of hurting yourself in some way: not at all Total score: 0 Depression Screening Interpretation: Negative Depression Screening Done: Yes Source: Developed by Drs. Domingo Brink, Bryanna Wolf, Larry Lawrence and colleagues, with an educational yesenia from [email or web address]. Thrive Questionnaire Date Thrive assessed: 06/09/24 I am a: Patient What is your living situation today?: I have a steady place to live Within the past 12 months, did the food you bought not last and you didn't have the money to get more?: Never true Within the past 12 months, did you worry whether your food would run out before you got money to buy more?: Never true Do you have trouble paying for medicines?: No Do you have trouble getting transportation to medical appointments?: No Do you have trouble paying your heating and electricity bill?: No Do you have trouble taking care of your child, family member or friend?: No Do you have trouble with day-to-day activities such as bathing, preparing meals, shopping, managing finances, etc.?: No Are you currently unemployed and looking for a job?: No Are you interested in more education?: No Please select the resources that you would like help with: None Currently or been in a relationship where the following occur: No concerns reported THRIVE Score: 0 AUDIT C Alcohol Use Questionnaire (AUDIT-C) 1. How often do you have a drink containing alcohol?: Never 3. How often do you have six or more drinks on one occasion?: Never Total Score: 0 ROOPA-7 AMB Questionnaire ROOPA-7 Date ROOPA - 7 assessed: 06/09/24 Feeling nervous, anxious, or on edge: 0 = Not at all Not being able to stop or control worryin = Not at all Worrying too much about different things: 0 = Not at all Trouble relaxin = Not at all Being so restless that it is hard to sit still: 0 = Not at all Becoming easily annoyed or irritable: 0 = Not at all Feeling afraid as if something awful might happen: 0 = Not at all Total ROOPA-7 score (0-4 normal; 5-9 mild; 10-14 moderate; 15-21 severe): 0 Source: Developed by Drs. Domingo Brink, Bryanna Wolf, Larry Lawrence and colleagues, with an educational yesenia from [email or web address]. Review of Systems Const Denies body aches, Denies chills, Denies fever(s), Denies headache(s) and Denies poor appetite Eyes Reports no additional complaints ENT Denies dysphagia, Denies dizziness, Denies headache(s) and Denies odynophagia Card Denies chest pain, Denies syncope, Denies lightheadedness and Denies dyspnea Resp Denies cough and Denies dyspnea GI Denies abdominal pain, Denies dysphagia, Denies nausea, Denies odynophagia and Denies vomiting Reports no additional complaints Musc Reports no additional complaints and Denies abnormal gait Skin/Breast Reports system reviewed and no additional complaints, except as documented Neuro Denies abnormal gait, Denies dizziness, Denies syncope and Denies headache(s) Psych Reports no additional complaints Physical exam (Primary Care) Vital Signs: Last Vital Signs Temp 97.2 F 06/09/24 10:39 Oxygen Delivery Method Room Air 06/09/24 10:39 BMI result Body Mass Index 61.3 Tobacco/Smoking Status: Tobacco use Status Tobacco use date assessed 06/09/24 06/09/24 10:42 Patient Tobacco Use Status Former Tobacco user 06/09/24 10:42 Tobacco use type Cigarette 06/09/24 10:42 e-Cigarette/Vaping Use Never Used 06/09/24 10:42 PHQ-9: PHQ-9 Score PHQ-9: Total score 0 06/09/24 10:42 Depression Screening Interpretation: Negative Thrive Assessment: Date of Thrive Assessment Date Thrive assessed 06/09/24 06/09/24 10:42 Currently or been in a relationship where the following occur: No concerns reported Const General: cooperative, healthy appearing, comfortable and no acute distress Orientation/consciousness: patient oriented x3 HENMT Head: Yes normocephalic Ears: hearing grossly normal bilaterally General nose exam: Normal external nose present Eyes General: appearance normal, both eyes and all related structures Conjunctivae: conjunctivae normal Neck Neck: Yes full ROM and Yes no lymphadenopathy Resp Effort & Inspection: normal respiratory effort Auscultation: clear to auscultation bilaterally, no crackles, no rales, no rhonchi and no wheezes Cardio Rate: regular rate Rhythm: regular rhythm Skin General skin exam: no rashes or lesions noted Neuro General: patient oriented x3 Gait exam (Neuro): Normal gait present Extrem General: Yes normal to inspection, Yes full ROM and No edema Psych Affect: normal affect Attitude: cooperative Insight: Good insight present (Psych) Judgement: Good judgement present (Psych) Coding Level of Care Code Est Pt Level 3 (80349) Diagnoses Pre-op exam Z01.818 Assessment & Plan Assessment & Plan (1) Pre-op exam: Code(s): Z01.818 - Encounter for other preprocedural examination Category: Medical Plan: Regarding preop clearance, the patient is at moderate risk for proposed surgery due to age, comorbidities and previous history. Reviewed with the patient that no surgery is completely free of risk and that this examination is to assist the surgeon in reviewing informed consent. She has had cataract surgery in the past without complication. As modern cataract surgeries rarely cause any bleeding, she is advised that she should be able to continue on her Clopidogrel 75 mg QD but is advised that I will leave it up to the discretion of the intelligent systems engineer performing the procedure if they are comfortable with patient being on Clopidogrel or not for her eye surgery Updated blood work and EKG has been ordered plan to add addendum to this note providing clearance once the lab work has been reviewied. Plan This note was constructed using voice recognition software. While every effort has been made to ensure accuracy and sea foam kiss maker, still areas may have been included sometimes these areas may affect the content or meeting of the given symptoms. Total time spent caring for the patient today was 20 minutes. This includes time spent before the visit reviewing the chart, time spent during the visit, and time spent after the visit and documentation. Orders: Orders ECG 12 lead EKG Today Z01.818 - Encounter for other preprocedural examination Hemoglobin A1c Today E11.65 - Type 2 diabetes mellitus with hyperglycemia Comprehensive Met. Panel Today Z01.818 - Encounter for other preprocedural examination Complete Blood Count Auto Diff Today Z01.818 - Encounter for other preproced ural examination Free T4 (Free Thyroxine) Today Z00.00 - Encounter for general adult medical examination without abnormal findings TSH reflex Free T4 Today Z00.00 - Encounter for general adult medical examination without abnormal findings
[2024-06-09 10:39] VITALS: BP 124/84; PULSE 73; TEMP 36.2; O2SAT 97; BMI 61.3
== END 2024-06-09 11:14 | disposition home or self-care (01) ==
LOC: HO.HMCH 10:27
PROVIDERS: PCP Internal Medicine
DX: Z01.818 Encounter for other preprocedural examination (principal)

== ENCOUNTER → 2024-06-09 10:26 | Outpatient (BNVA) | payer OTHER, SELFPAY | PROVIDERS: PCP Internal Medicine | DX: Z01.818 Encounter for other preprocedural examination (principal) | CPT/HCPCS: 99212 ==

== ENCOUNTER 2024-06-10 07:28 | Outpatient (REF) | payer OTHER, SELFPAY ==
[2024-06-10 11:12] LABS: MANUAL DIFF FLAG NO
[2024-06-10 11:50] LABS: Basophils Absolute Auto 0.1 X10*3/uL (0.0-0.2); Basophils Percent Auto 1.1 % (0-2); Eosinophils Absolute Auto 0.3 X10*3/uL (0.0-0.4); Eosinophils Percent Auto 3.7 % (0-4); Hematocrit 45.1 % (37.0-47.0); Hemoglobin 14.6 g/dl (12.0-16.0); Imm Gran Abs Auto 0.08 X10*3/uL (0.00-0.03); Imm Gran Pct Auto 0.9 % (0.0-0.4); Lymphocytes Absolute Auto 2.2 X10*3/uL (1.2-4.9); Lymphocytes Percent Auto 25.7 % (20-40); Mean Corpuscular HGB Conc 32.4 g/dl (31.0-35.0); Mean Corpuscular Hemoglobin 28.6 pg (27.0-33.0); Mean Corpuscular Volume 88.4 fL (80.0-98.0); Mean Platelet Volume 10.2 fL (9.4-12.3); Monocytes Absolute Auto 0.6 X10*3/uL (0.1-1.2); Monocytes Percent Auto 6.5 % (2-11); Neutrophils Absolute Auto 5.3 x10*3/uL (2.0-8.3); Neutrophils Percent Auto 62.1 % (45-73); Platelet Count 236 X10*3/uL (160-400); Red Cell Distribution Width 13.4 % (11.0-16.0); White Blood Count 8.5 X10*3/uL (4.8-10.8)
[2024-06-10 11:55] LABS: Estimated Average Glucose 174 mg/dL; Hemoglobin A1C 236.6244 umol/L; Hemoglobin A1c % 7.7 % (<6.0); Total Hemoglobin (HGBA1C) 3867.8196 umol/L
[2024-06-10 12:17] LABS: Alanine Aminotransferase 23 U/L (0-31); Albumin Level 3.9 g/dL (3.5-5.0); Alkaline Phosphatase 122 U/L (39-117); Anion Gap 12 (12-20); Aspartate Amino Transferase 20 U/L (5-31); Bilirubin Total 0.4 mg/dL (0.0-1.0); Blood Urea Nitrogen 15 mg/dL (9-16); Calcium 9.8 mg/dL (8.4-10.2); Carbon Dioxide 30 mmol/L (22-29); Chloride 104 mmol/L (96-108); Estimated Glomerular Filt Rate > 60; Glucose Random 230 mg/dL (60-115); Potassium 4.5 mmol/L (3.3-5.1); Sodium 141 mmol/L (135-145); Total Protein 7.2 g/dL (6.5-8.0)
[2024-06-10 12:18] LABS: Free T4 (Free Thyroxine) 0.95 ng/dL (0.71-1.85); TSH reflex Free T4 2.11 uIU/mL (0.32-4.0)
== END 2024-06-10 07:29 | disposition home or self-care (01) ==
LOC: HO.HMGCLDS 07:28
DX: Z00.00 Encounter for general adult medical examination without abnormal findings (principal); E11.65 Type 2 diabetes mellitus with hyperglycemia; Z01.818 Encounter for other preprocedural examination
CPT/HCPCS: 36415; 80053; 83036; 84439; 84443; 85025

== ENCOUNTER → 2024-06-11 09:28 | Outpatient (REF) | payer OTHER, SELFPAY ==
--- NOTE | 2024-06-11 09:35 | ECG_ITS ---
Test Reason : PRE OP Blood Pressure : */* mmHG Vent. Rate : 82 BPM Atrial Rate : 82 BPM P-R Int : 156 ms QRS Dur : 78 ms QT Int : 354 ms P-R-T Axes : 24 39 46 degrees QTcB Int : 413 ms Normal sinus rhythm Low voltage QRS Cannot rule out Anteroseptal infarct (cited on or before 11-Mar-2018) Abnormal ECG When compared with ECG of 11-Mar-2018 09:55, Questionable change in initial forces of Anterior leads Referred By: Meli Hicks Electronically Signed By: MAXINE LARA
== END ==
LOC: HO.CARD 09:28
DX: Z01.818 Encounter for other preprocedural examination (principal)
CPT/HCPCS: 93005

== ENCOUNTER → 2024-06-11 09:35 | Outpatient (BNV) | payer OTHER, SELFPAY | PROVIDERS: Visit Provider Internal Medicine | DX: R94.31 Abnormal electrocardiogram [ECG] [EKG] (principal); Z01.810 Encounter for preprocedural cardiovascular examination | CPT/HCPCS: 93010 ==

== ENCOUNTER 2024-06-16 14:00 | Outpatient (AMB) | payer OTHER, SELFPAY ==
--- NOTE | 2024-06-16 14:07 | A.OFFPC_ITS ---
Vital Signs 06/16/24 14:08 Height 5 ft 3 in Weight 340 lb 6 oz BMI 60.3 BP 130/70 Blood Pressure Location Lt brachial Position Sitting Pulse 63 Pulse Source Pulse Oximeter Temp 97.3 F Temp Source Temporal Artery Scan Pulse Oximetry (%) 95 Oxygen Delivery Method Room Air Intake Visit Reasons: ANGELLA DR Powers Intake Note: Patient is here today for ANGELLA from Dr Powers Textbook Associate Required: No Hotel Service Supervisor: Not Required per policy Accompanied by: Self / Same As Patient Allergies codeine [CODEINE] Allergy (Unknown, Verified 06/16/24 14:08) UNKNOWN doxycycline Allergy (Unknown, Verified 06/16/24 14:08) Unknown metformin Allergy (Unknown, Verified 06/16/24 14:08) Diarrhea Medication List - Last Reconciled 06/16/24 by Meli Hicks PA-C albuterol sulfate 90 mcg/actuation (Ventolin HFA) 2 puffs inhalation Q4-6H PRN blood sugar diagnostic (FreeStyle Lite Strips) Test 2 times daily chair, wheel (Wheel chair) powered wheelchair clopidogrel 75 mg PO DAILY glipizide 5 mg PO DAILY lancets (FreeStyle Lancets) Test 2 times Daily levothyroxine 150 mcg PO DAILY lisinopril 20 mg PO DAILY metoprolol succinate ER 25 mg PO DAILY miscellaneous medical supply 1 ea miscellaneous DAILY simvastatin 40 mg PO DAILY sitagliptin phos-metformin 50-1,000 mg ER (Janumet XR) 1 tab PO .twice a day triamcinolone acetonide 0.1% 1 appl topical BID Tobacco use date assessed: 06/16/24 Fall risk assessment: No Falls in past year Last assessed Fall Risk: 06/16/24 Dental Screening Dental Screen Date: 06/09/[address] Powers HPI Details 68 year old female with past history of hyperlipidemia, diabetes mellitus, hypothyroid, hypertension, morbid obesity last seen 06/2024 coming in for transfer of care appointment. Presenting with follow-up for diabetes management and review of medications. The patient reports challenges with Type 2 Diabetes Mellitus management, citing increased A1c levels related to occasional lapses in medication adherence and dietary indiscretions with sweets. Her recent self-monitored blood glucose indicates improvement. She has a history of Essential Hypertension managed with lisinopril and metoprolol, with current control reported as stable. Past cardiovascular events include a myocardial infarction and a stroke; she remains on clopidogrel as maintenance. Asthma is noted, with episodic use of albuterol inhaler when symptomatic. mammogram - declined DEXA - placed today has Cologuard box at home - reminded [facility] Medical History Morbid obesity Type 2 diabetes mellitus with morbid obesity Post-menopausal Heart attack Stroke Hyperlipidemia Surgical History No pertinent past surgical history Family History Father COPD (chronic obstructive pulmonary disease) Mother Medical history unknown Social History Housing: Apartment Alcohol intake: never Patient Tobacco Use Status: Former Tobacco user Tobacco use type: Cigarette Years Smoked: 20 e-Cigarette/Vaping Use: Never Used Second Hand Smoke Exposure: Yes service: No Current occupational status: disabled Cognitive needs: Yes (Cane) Hearing needs: No Vision needs: Yes (Glasses) Questionnaire Thrive Questionnaire Date Thrive assessed: 06/09/24 ROOPA-7 AMB Questionnaire ROOPA-7 Date ROOPA - 7 assessed: 06/09/24 Source: Developed by Drs. Domingo Brink, Bryanna Wolf, Larry Larwence and colleagues, with an educational yesenia from [employer]. Review of Systems Const Denies body aches, Denies chills, Denies fever(s), Denies headache(s) and Denies poor appetite Eyes Reports no additional complaints ENT Denies dysphagia, Denies dizziness, Denies headache(s) and Denies odynophagia Card Denies chest pain, Denies syncope, Denies edema, Denies irregular heart rhythm, Denies lightheadedness and Denies dyspnea Resp Denies cough and Denies dyspnea GI Denies abdominal pain, Denies constipation, Denies dysphagia, Denies diarrhea, Denies nausea, Denies odynophagia and Denies vomiting Reports no additional complaints Musc Reports no additional complaints and Denies abnormal gait Skin/Breast Reports system reviewed and no additional complaints, except as documented Neuro Denies abnormal gait, Denies dizziness, Denies syncope and Denies headache(s) Psych Reports no additional complaints Physical exam (Primary Care) Tobacco/Smoking Status: Tobacco use Status Tobacco use date assessed 06/09/24 06/09/24 10:42 Patient Tobacco Use Status Former Tobacco user 06/09/24 10:42 Tobacco use type Cigarette 06/09/24 10:42 e-Cigarette/Vaping Use Never Used 06/09/24 10:42 Thrive Assessment: Date of Thrive Assessment Date Thrive assessed 06/09/24 06/09/24 10:42 Const General: cooperative, healthy appearing, comfortable and no acute distress Orientation/consciousness: patient oriented x3 HENMT Head: Yes normocephalic Ears: hearing grossly normal bilaterally General nose exam: Normal external nose present Eyes General: appearance normal, both eyes and all related structures Conjunctivae: conjunctivae normal Neck Neck: Yes full ROM and Yes no lymphadenopathy Resp Effort & Inspection: normal respiratory effort Auscultation: clear to auscultation bilaterally, no crackles, no rales, no rhonchi and no wheezes Cardio Rate: regular rate Rhythm: regular rhythm Skin General skin exam: no rashes or lesions noted Neuro General: patient oriented x3 Gait exam (Neuro): Normal gait present Extrem General: Yes normal to inspection, Yes full ROM and No edema Psych Affect: normal affect Attitude: cooperative Insight: Good insight present (Psych) Judgement: Good judgement present (Psych) Coding Level of Care Code Est Pt Level 4 (48571) Diagnoses Morbid obesity E66.01 Type 2 diabetes mellitus with morbid obesity E11.69; E66.01 Urinary incontinence, mixed N39.46 Hypertension, unspecified type I10 Hypertension type: unspecified Hypothyroidism, unspecified type E03.9 Hypothyroidism type: unspecified Hyperlipidemia, unspecified hyperlipidemia type E78.5 Hyperlipidemia type: unspecified Asthma J45.909 Assessment & Plan Assessment & Plan (1) Morbid obesity: Code(s): E66.01 - Morbid (severe) obesity due to excess calories Category: Medical Plan: Healthy diet and regular exercise is encouraged. (2) Type 2 diabetes mellitus with morbid obesity: Code(s): E11.69 - Type 2 diabetes mellitus with other specified complication; E66.01 - Morbid (severe) obesity due to excess calories Category: Medical Plan: Decrease the amount of carbohydrates such as pasta, bread, rice, and potatoes and limit the amount of sweets. Although fruits are generally healthy they should be eaten in moderation as they are still high in sugar. Hemoglobin A1c goal of less than 7%. A1c on last labs 7.7%. Currently patient is on Janumet and glipizide. Patient refusing medication adjustment or additional medication at this time. Discussed risks of elevated blood sugars over time. Patient understands and agrees to work on medication compliance and diet modification. (3) Urinary incontinence, mixed: Code(s): N39.46 - Mixed incontinence Category: Medical Plan: Not currently on medical management. (4) Hypertension: Code(s): I10 - Essential (primary) hypertension Category: Medical Qualifiers: Hypertension type: unspecified Qualified Code(s): I10 - Essential (primary) hypertension Plan: Continue on current blood pressure medication. Avoid salt intake and encourage healthy diet and regular exercise. (5) Hypothyroid: Code(s): E03.9 - Hypothyroidism, unspecified Category: Medical Qualifiers: Hypothyroidism type: unspecified Qualified Code(s): E03.9 - Hypothyroidism, unspecified Plan: Last thyroid labs within normal limits presently on levothyroxine 150 mcg (6) Hyperlipidemia: Code(s): E78.5 - Hyperlipidemia, unspecified Category: Medical Qualifiers: Hyperlipidemia type: unspecified Qualified Code(s): E78.5 - Hyperlipidemia, unspecified Plan: Avoid foods that are high in cholesterol such as red meat, fried foods, eggs and baked goods. Triglyceride goal of less than 150 and LDL goal of less than 100. Continue on simvastatin 40 mg. Cholesterol at goal on last labs ordered for repeat labs (7) Asthma: Code(s): J45.909 - Unspecified asthma, uncomplicated Category: Medical Plan: Asthma currently controlled on present medications. Continue on albuterol as needed.? Avoid triggers such as allergies. Plan The patient will continue with Janumet administration twice daily for Type 2 Diabetes Mellitus management while reinforcing adherence to the medication schedule. Dietary adjustments, specifically reducing the consumption of sweets, were strongly advised. Regular glucose monitoring will be maintained, with follow-up laboratory assessment of A1c scheduled in three months. Current management of Essential Hypertension with lisinopril and metoprolol will persist. Patient education on completing scheduled cholesterol panels was provided alongside preventative health screenings. Coordination of prescribed medication with preferred pharmacy ensured smooth supply chain continuity. This note was constructed using voice recognition software. While every effort has been made to ensure accuracy and procurement technician, still areas may have been included sometimes these areas may affect the content or meeting of the given symptoms. Total time spent caring for the patient today was 30 minutes. This includes time spent before the visit reviewing the chart, time spent during the visit, and time spent after the visit and documentation. Patient was informed and verbally consented to the use of an ambient scribe for clinic note documentation during this visit. Orders: Orders Lipid Panel 3 Months E78.00 - Pure hypercholesterolemia, unspecified Hemoglobin A1c 3 Months E11.65 - Type 2 diabetes mellitus with hyperglycemia XR DEXA axial skeleton Today Z78.0 - Asymptomatic menopausal state Medications: Refilled glipizide 5 mg PO DAILY 90 tabs 1RF metoprolol succinate ER 25 mg PO DAILY 90 tabs 0RF sitagliptin phos-metformin 50-1,000 mg ER (Janumet XR) 1 tab PO .twice a day 180 tabs 6RF clopidogrel 75 mg PO DAILY 90 tabs 8RF levothyroxine 150 mcg PO DAILY 90 tabs 3RF lisinopril 20 mg PO DAILY 90 tabs 8RF simvastatin 40 mg PO DAILY 90 tabs 8RF
[2024-06-16 14:08] VITALS: BP 130/70; PULSE 63; TEMP 36.3; O2SAT 95; BMI 60.3
== END 2024-06-16 14:36 | disposition home or self-care (01) ==
LOC: HO.HMCH 14:00
DX: E11.69 Type 2 diabetes mellitus with other specified complication (principal); E66.01 Morbid (severe) obesity due to excess calories; Z68.44 Body mass index [BMI] 60.0-69.9, adult; N39.46 Mixed incontinence; J45.909 Unspecified asthma, uncomplicated; I10 Essential (primary) hypertension; E03.9 Hypothyroidism, unspecified; E78.5 Hyperlipidemia, unspecified

== ENCOUNTER → 2024-06-16 14:00 | Outpatient (BNVA) | payer OTHER, SELFPAY | DX: E78.5 Hyperlipidemia, unspecified (principal); E03.9 Hypothyroidism, unspecified; I10 Essential (primary) hypertension; E66.01 Morbid (severe) obesity due to excess calories; E11.65 Type 2 diabetes mellitus with hyperglycemia; N39.46 Mixed incontinence; J45.909 Unspecified asthma, uncomplicated; E78.00 Pure hypercholesterolemia, unspecified; Z78.0 Asymptomatic menopausal state; Z87.891 Personal history of nicotine dependence | CPT/HCPCS: 99212 ==

== ENCOUNTER 2024-09-15 06:50 | Outpatient (REF) | payer OTHER, SELFPAY ==
[2024-09-15 10:54] LABS: Hemoglobin A1C 230.6256 umol/L; Total Hemoglobin (HGBA1C) 3565.8095 umol/L
[2024-09-15 11:17] LABS: Cholesterol 127 mg/dL (<200); HDL Cholesterol 32 mg/dL (>40); Triglycerides 149 mg/dL (<150)
== END 2024-09-15 06:51 | disposition home or self-care (01) ==
LOC: HO.HMGCLDS 06:50
DX: E78.00 Pure hypercholesterolemia, unspecified (principal); E11.65 Type 2 diabetes mellitus with hyperglycemia
CPT/HCPCS: 36415; 80061; 83036

== ENCOUNTER 2024-09-21 09:02 | Outpatient (AMB) | payer OTHER, SELFPAY ==
--- NOTE | 2024-09-21 09:05 | A.OFFPC_ITS ---
Vital Signs 09/21/24 09:07 09/21/24 09:40 Height 5 ft 3 in Weight 335 lb 4 oz BMI 59.4 BP 140/64 H 118/70 Blood Pressure Location Lt brachial Position Sitting Intake Visit Reasons: f/u DM and HLD- repeat A1C Accompanied by: Self / Same As Patient Allergies codeine (CODEINE) Allergy (Unknown, Verified 09/21/24 09:25) UNKNOWN doxycycline Allergy (Unknown, Verified 09/21/24 09:25) Unknown metformin Allergy (Unknown, Verified 09/21/24 09:25) Diarrhea Medication List - Last Reconciled 09/21/24 by Meli Hicks PA-C albuterol sulfate 90 mcg/actuation (Ventolin HFA) 2 puffs inhalation Q4-6H PRN blood sugar diagnostic (FreeStyle Lite Strips) Test 2 times daily chair, wheel (Wheel chair) powered wheelchair clopidogrel 75 mg PO DAILY glipizide 5 mg PO DAILY lancets (FreeStyle Lancets) Test 2 times Daily levothyroxine 150 mcg PO DAILY lisinopril 20 mg PO DAILY metoprolol succinate ER 25 mg PO DAILY miscellaneous medical supply 1 ea miscellaneous DAILY simvastatin 40 mg PO DAILY sitagliptin phos-metformin 50-1,000 mg ER (Janumet XR) 1 tab PO .twice a day triamcinolone acetonide 0.1% 1 appl topical BID Tobacco use date assessed: 09/21/24 Fall risk assessment: No Falls in past year Last assessed Fall Risk: 09/21/24 Dental Screening Dental Screen Date: 09/21/24 HPI f/u DM and HLD- repeat A1C HPI Details 68 year old female with past history of hyperlipidemia, diabetes mellitus, hypothyroid, hypertension, morbid obesity last seen 06/2024 coming in for follow up. Presenting with Type 2 Diabetes Mellitus. The patient's A1c has increased from 6.8 in December to 8.1 currently, indicating poor glycemic control. The patient reports dietary indiscretions, including the use of honey, brown sugar, and ice cream, which may contribute to elevated blood glucose levels. The patient is currently on glipizide and Janumet, with adherence issues noted as she forgot to take her medication for a couple of days. The patient has lost 5 pounds since the last visit, weighing 335 pounds currently, down from 340 pounds. [facility] Medical History Morbid obesity Type 2 diabetes mellitus with morbid obesity Post-menopausal Heart attack Stroke Hyperlipidemia Surgical History No pertinent past surgical history Family History Father COPD (chronic obstructive pulmonary disease) Mother Medical history unknown Social History Housing: Apartment Alcohol intake: never Patient Tobacco Use Status: Former Tobacco user Tobacco use type: Cigarette Years Smoked: 20 e-Cigarette/Vaping Use: Never Used Second Hand Smoke Exposure: Yes service: No Current occupational status: disabled Cognitive needs: Yes (Cane) Hearing needs: No Vision needs: Yes (Glasses) Questionnaire PHQ-9 Over the last 2 weeks, how often have you been bothered by any of the following problems? 1. Little interest or pleasure in doing things: not at all 2. Feeling down, depressed, or hopeless: not at all 3. Trouble falling or staying asleep, or sleeping too much: not at all 4. Feeling tired or having little energy: not at all 5. Poor appetite or overeating: not at all 6. Feeling bad about yourself - or that you are a failure or have let yourself or your family down: not at all 7. Trouble concentrating on things, such as reading the newspaper or watching television: not at all 8. Moving or speaking so slowly that other people could have noticed. Or the opposite - being so fidgety or restless that you have been moving around a lot more than usual: not at all 9. Thoughts that you would be better off or of hurting yourself in some way: not at all Total score: 0 79703 - PHQ-9 Billing: Yes Source: Developed by Drs. Domingo Brink, Bryanna Wolf, Larry Lawrence and colleagues, with an educational yesenia from [employer]. Thrive Questionnaire Date Thrive assessed: 09/21/24 I am a: Patient What is your living situation today?: I have a steady place to live Within the past 12 months, did the food you bought not last and you didn't have the money to get more?: Never true Within the past 12 months, did you worry whether your food would run out before you got money to buy more?: Never true Do you have trouble paying for medicines?: No Do you have trouble getting transportation to medical appointments?: No Do you have trouble paying your heating and electricity bill?: No Do you have trouble taking care of your child, family member or friend?: No Do you have trouble with day-to-day activities such as bathing, preparing meals, shopping, managing finances, etc.?: No Are you currently unemployed and looking for a job?: No Are you interested in more education?: No Please select the resources that you would like help with: None Currently or been in a relationship where the following occur: No concerns reported THRIVE Score: 0 AUDIT C Alcohol Use Questionnaire (AUDIT-C) 1. How often do you have a drink containing alcohol?: Never Total Score: 0 ROOPA-7 AMB Questionnaire ROOPA-7 Date ROOPA - 7 assessed: 09/21/24 Feeling nervous, anxious, or on edge: 0 = Not at all Not being able to stop or control worryin = Not at all Worrying too much about different things: 0 = Not at all Trouble relaxin = Not at all Being so restless that it is hard to sit still: 0 = Not at all Becoming easily annoyed or irritable: 0 = Not at all Feeling afraid as if something awful might happen: 0 = Not at all Total ROOPA-7 score (0-4 normal; 5-9 mild; 10-14 moderate; 15-21 severe): 0 Source: Developed by Drs. Domingo Brink, Bryanna Wolf, Larry Lawrence and colleagues, with an educational yesenia from [employer]. ROOPA-7 Assessment Billing ROOPA-7 Assessment Tool: ROOPA-7 Assessment 24518 Review of Systems Const Denies body aches, Denies chills, Denies fever(s), Denies headache(s) and Denies poor appetite Eyes Reports no additional complaints ENT Denies dizziness and Denies headache(s) Card Denies chest pain, Denies lightheadedness and Denies dyspnea Resp Denies dyspnea GI Denies abdominal pain, Denies nausea and Denies vomiting Reports no additional complaints Musc Reports no additional complaints and Denies abnormal gait Skin/Breast Reports system reviewed and no additional complaints, except as documented Neuro Denies abnormal gait, Denies dizziness and Denies headache(s) Psych Reports no additional complaints Physical exam (Primary Care) Vital Signs: Last Vital Signs BP 118/70 09/21/24 09:40 BMI result Body Mass Index 59.4 Tobacco/Smoking Status: Tobacco use Status Tobacco use date assessed 09/21/24 09/21/24 09:07 Patient Tobacco Use Status Former Tobacco user 09/21/24 09:07 Tobacco use type Cigarette 09/21/24 09:07 e-Cigarette/Vaping Use Never Used 09/21/24 09:07 PHQ-9: PHQ-9 Score PHQ-9: Total score 0 09/21/24 10:22 Thrive Assessment: Date of Thrive Assessment Date Thrive assessed 09/21/24 09/21/24 09:07 Currently or been in a relationship where the following occur: No concerns reported Const General: cooperative, healthy appearing, comfortable and no acute distress Orientation/consciousness: patient oriented x3 HENMT Head: Yes normocephalic Ears: hearing grossly normal bilaterally General nose exam: Normal external nose present Eyes General: appearance normal, both eyes and all related structures Conjunctivae: conjunctivae normal Neck Neck: Yes full ROM and Yes no lymphadenopathy Resp Effort & Inspection: normal respiratory effort Auscultation: clear to auscultation bilaterally, no crackles, no rales, no rhonchi and no wheezes Cardio Rate: regular rate Rhythm: regular rhythm Skin General skin exam: no rashes or lesions noted Neuro General: patient oriented x3 Gait exam (Neuro): Normal gait present Extrem General: Yes normal to inspection, Yes full ROM and No edema Psych Affect: normal affect Attitude: cooperative Insight: Good insight present (Psych) Judgement: Good judgement present (Psych) Coding Level of Care Code Est Pt Level 4 (22861) Diagnoses Hypertension, unspecified type I10 Hypertension type: unspecified Hyperlipidemia, unspecified hyperlipidemia type E78.5 Hyperlipidemia type: unspecified Type 2 diabetes mellitus with morbid obesity E11.69; E66.01 Hypothyroidism, unspecified type E03.9 Hypothyroidism type: unspecified Morbid obesity E66.01 Additional Codes ROOPA-7 Assessment Billing - ROOPA-7 Assessment Tool: ROOPA-7 Assessment 70121 ([id number]) PHQ-9 - 84281 - PHQ-9 Billing: Yes ([id number]) Assessment & Plan Assessment & Plan (1) Hypertension: Code(s): I10 - Essential (primary) hypertension Category: Medical Qualifiers: Hypertension type: unspecified Qualified Code(s): I10 - Essential (primary) hypertension Plan: Continue on current blood pressure medication. Avoid salt intake and encourage healthy diet and regular exercise. (2) Hyperlipidemia: Code(s): E78.5 - Hyperlipidemia, unspecified Category: Medical Qualifiers: Hyperlipidemia type: unspecified Qualified Code(s): E78.5 - Hyperlipidemia, unspecified Plan: Avoid foods that are high in cholesterol such as red meat, fried foods, eggs and baked goods. Triglyceride goal of less than 150 and LDL goal of less than 100. Continue on simvastatin 40 mg. Cholesterol at goal on last labs LDL 66 (3) Type 2 diabetes mellitus with morbid obesity: Code(s): E11.69 - Type 2 diabetes mellitus with other specified complication; E66.01 - Morbid (severe) obesity due to excess calories Category: Medical Plan: Decrease the amount of carbohydrates such as pasta, bread, rice, and potatoes and limit the amount of sweets. Although fruits are generally healthy they should be eaten in moderation as they are still high in sugar. Hemoglobin A1c goal of less than 7%. A1c on last labs 7.7%. Currently patient is on Janumet and glipizide. Plan to add Jardiance to medication regimen. She is declining insulin and GLP 1 injection at this time. She will work on diet prior to next visit. (4) Hypothyroid: Code(s): E03.9 - Hypothyroidism, unspecified Category: Medical Qualifiers: Hypothyroidism type: unspecified Qualified Code(s): E03.9 - Hypothyroidism, unspecified Plan: Last thyroid labs within normal limits presently on levothyroxine 150 mcg (5) Morbid obesity: Code(s): E66.01 - Morbid (severe) obesity due to excess calories Category: Medical Plan: Healthy diet and regular exercise is encouraged. Plan The patient will be started on Jardiance to aid in glycemic control, with instructions to monitor for any urinary tract infections due to the mechanism of action of the medication. Dietary modifications are recommended, including reducing intake of honey, brown sugar, and ice cream, to help manage blood glucose levels. The patient is encouraged to increase water intake to assist with glucose metabolism and prevent dehydration. The patient will have a follow- up appointment in three months to reassess A1c levels and overall diabetes management. This note was constructed using voice recognition software. While every effort has been made to ensure accuracy and registered medical transcriptionist, still areas may have been included sometimes these areas may affect the content or meeting of the given symptoms. Total time spent caring for the patient today was 20 minutes. This includes time spent before the visit reviewing the chart, time spent during the visit, and time spent after the visit and documentation. Patient was informed and verbally consented to the use of an ambient scribe for clinic note documentation during this visit. Orders: Orders Hemoglobin A1c 3 Months E11.65 - Type 2 diabetes mellitus with hyperglycemia Medications: New empagliflozin (Jardiance) 10 mg PO DAILY 90 tabs 0RF Refilled blood sugar diagnostic (FreeStyle Lite Strips) Test 2 times daily 100 ea 2RF E11.69 - Type 2 diabetes mellitus with other specified complication, E66.01 - Morbid (severe) obesity due to excess calories
[2024-09-21 09:07] VITALS: BP 140/64; BMI 59.4
[2024-09-21 09:40] VITALS: BP 118/70
== END 2024-09-21 09:52 | disposition home or self-care (01) ==
LOC: HO.HMCH 09:03
DX: E11.69 Type 2 diabetes mellitus with other specified complication (principal); E66.01 Morbid (severe) obesity due to excess calories; Z68.43 Body mass index [BMI] 50.0-59.9, adult; I10 Essential (primary) hypertension; E78.5 Hyperlipidemia, unspecified; E03.9 Hypothyroidism, unspecified

== ENCOUNTER → 2024-09-21 09:02 | Outpatient (BNVA) | payer OTHER, SELFPAY | DX: I10 Essential (primary) hypertension (principal); E11.69 Type 2 diabetes mellitus with other specified complication; E78.5 Hyperlipidemia, unspecified; E03.9 Hypothyroidism, unspecified; E66.01 Morbid (severe) obesity due to excess calories; Z68.43 Body mass index [BMI] 50.0-59.9, adult | CPT/HCPCS: 96127; 99212 ==

== ENCOUNTER 2024-12-23 07:21 | Outpatient (REF) | payer OTHER, SELFPAY | END 2024-12-23 07:22 | disposition home or self-care (01) | LOC: HO.HMGCLDS 07:21 | DX: E11.65 Type 2 diabetes mellitus with hyperglycemia (principal) | CPT/HCPCS: 36415; 83036 ==

== ENCOUNTER 2024-12-27 11:01 | Outpatient (AMB) | payer OTHER, SELFPAY ==
--- NOTE | 2024-12-27 11:06 | MHC.PC.OV ---
Vital Signs 12/27/24 11:07 Height 5 ft 3 in Weight 326 lb 4 oz BMI 57.8 BP 132/76 Blood Pressure Location Lt brachial Position Sitting Pulse 79 Pulse Source Pulse Oximeter Temp 97.1 F Temp Source Temporal Artery Scan Pulse Oximetry (%) 94 Oxygen Delivery Method Room Air Intake Visit Reasons: f/u diabetes Accompanied by: Grand Child Allergies codeine (CODEINE) Allergy (Unknown, Verified 12/27/24 11:20) UNKNOWN doxycycline Allergy (Unknown, Verified 12/27/24 11:20) Unknown metformin Allergy (Unknown, Verified 12/27/24 11:20) Diarrhea Medication List - Last Reconciled 12/27/24 by Meli Hicks PA-C albuterol sulfate 90 mcg/actuation (Ventolin HFA) 2 puffs inhalation Q4-6H PRN blood sugar diagnostic (FreeStyle Lite Strips) Test 2 times daily chair, wheel (Wheel chair) powered wheelchair clopidogrel 75 mg PO DAILY empagliflozin (Jardiance) 10 mg PO DAILY glipizide 5 mg PO DAILY lancets (FreeStyle Lancets) Test 2 times Daily levothyroxine 150 mcg PO DAILY lisinopril 20 mg PO DAILY metoprolol succinate ER 25 mg PO DAILY miscellaneous medical supply 1 ea miscellaneous DAILY simvastatin 40 mg PO DAILY sitagliptin phos-metformin 50-1,000 mg ER (Janumet XR) 1 tab PO .twice a day triamcinolone acetonide 0.1% 1 appl topical BID Tobacco use date assessed: 12/27/24 Fall risk assessment: No Falls in past year Last assessed Fall Risk: 12/27/24 Dental Screening Dental Screen Date: 12/27/24 Did you have a dental visit in the last 12 months?: No Did you have a dental problem in the last 6 months where you did not have access to dental care?: No Was dental information given to patient?: No HPI f/u diabetes HPI Details 69 year old female with past history of hyperlipidemia, diabetes mellitus, hypothyroid, hypertension, morbid obesity last seen 09/2024 coming in for follow up. Presenting with a follow-up for Type 2 Diabetes Mellitus management. The patient's A1c improved from 8.1% to 6.7% after starting Jardiance, though dietary non-compliance persists. Cholesterol levels are stable under current medication regimen. Blood pressure is well-controlled with medication. The patient has lost 20 pounds since June, primarily due to increased incidental activity. [facility] Medical History Morbid obesity Type 2 diabetes mellitus with morbid obesity Post-menopausal Heart attack Stroke Hyperlipidemia Surgical History No pertinent past surgical history Family History Father COPD (chronic obstructive pulmonary disease) Mother Medical history unknown Social History Housing: Apartment Alcohol intake: never Patient Tobacco Use Status: Former Tobacco user Tobacco use type: Cigarette Years Smoked: 20 e-Cigarette/Vaping Use: Never Used Second Hand Smoke Exposure: Yes service: No Current occupational status: disabled Cognitive needs: Yes (Cane) Hearing needs: No Vision needs: Yes (Glasses) Questionnaire PHQ-9 Over the last 2 weeks, how often have you been bothered by any of the following problems? 1. Little interest or pleasure in doing things: not at all 2. Feeling down, depressed, or hopeless: not at all 3. Trouble falling or staying asleep, or sleeping too much: not at all 4. Feeling tired or having little energy: not at all 5. Poor appetite or overeating: not at all 6. Feeling bad about yourself - or that you are a failure or have let yourself or your family down: not at all 7. Trouble concentrating on things, such as reading the newspaper or watching television: not at all 8. Moving or speaking so slowly that other people could have noticed. Or the opposite - being so fidgety or restless that you have been moving around a lot more than usual: not at all 9. Thoughts that you would be better off or of hurting yourself in some way: not at all Total score: 0 07285 - PHQ-9 Billing: Yes Source: Developed by Drs. Domingo Brink, Bryanna Wolf, Larry Lawrence and colleagues, with an educational yesenia from [employer]. Thrive Questionnaire Date Thrive assessed: 09/21/24 I am a: Patient What is your living situation today?: I have a steady place to live Within the past 12 months, did the food you bought not last and you didn't have the money to get more?: Never true Within the past 12 months, did you worry whether your food would run out before you got money to buy more?: Never true Do you have trouble paying for medicines?: No Do you have trouble getting transportation to medical appointments?: No Do you have trouble paying your heating and electricity bill?: No Do you have trouble taking care of your child, family member or friend?: No Do you have trouble with day-to-day activities such as bathing, preparing meals, shopping, managing finances, etc.?: No Are you currently unemployed and looking for a job?: No Are you interested in more education?: No Please select the resources that you would like help with: None Currently or been in a relationship where the following occur: No concerns reported THRIVE Score: 0 AUDIT C Alcohol Use Questionnaire (AUDIT-C) 1. How often do you have a drink containing alcohol?: Never 3. How often do you have six or more drinks on one occasion?: Never Total Score: 0 ROOPA-7 AMB Questionnaire ROOPA-7 Date ROOPA - 7 assessed: 09/21/24 Feeling nervous, anxious, or on edge: 0 = Not at all Not being able to stop or control worryin = Not at all Worrying too much about different things: 0 = Not at all Trouble relaxin = Not at all Being so restless that it is hard to sit still: 0 = Not at all Becoming easily annoyed or irritable: 0 = Not at all Feeling afraid as if something awful might happen: 0 = Not at all Total ROOPA-7 score (0-4 normal; 5-9 mild; 10-14 moderate; 15-21 severe): 0 Source: Developed by Drs. Domingo Brink, Bryanna Wolf, Larry Lawrenec and colleagues, with an educational yesenia from [employer]. Review of Systems Const Denies body aches, Denies chills, Denies fever(s), Denies headache(s) and Denies poor appetite Eyes Reports no additional complaints ENT Denies dysphagia, Denies dizziness, Denies headache(s) and Denies odynophagia Card Denies chest pain, Denies syncope, Denies edema, Denies irregular heart rhythm, Denies lightheadedness and Denies dyspnea Resp Denies cough and Denies dyspnea GI Denies abdominal pain, Denies constipation, Denies dysphagia, Denies diarrhea, Denies nausea, Denies odynophagia and Denies vomiting Reports no additional complaints Musc Reports no additional complaints and Denies abnormal gait Skin/Breast Reports system reviewed and no additional complaints, except as documented Neuro Denies abnormal gait, Denies dizziness, Denies syncope and Denies headache(s) Psych Reports no additional complaints Physical exam (Primary Care) Vital Signs: Last Vital Signs Temp 97.1 F 12/27/24 11:07 Pulse 79 12/27/24 11:07 BP 132/76 12/27/24 11:07 Pulse Ox 94 12/27/24 11:07 Oxygen Delivery Method Room Air 12/27/24 11:07 BMI result Body Mass Index 57.8 Tobacco/Smoking Status: Tobacco use Status Tobacco use date assessed 12/27/24 12/27/24 11:10 Patient Tobacco Use Status Former Tobacco user 12/27/24 11:10 Tobacco use type Cigarette 12/27/24 11:10 e-Cigarette/Vaping Use Never Used 12/27/24 11:10 PHQ-9: PHQ-9 Score PHQ-9: Total score 0 12/27/24 11:10 Thrive Assessment: Date of Thrive Assessment Date Thrive assessed 09/21/24 12/27/24 11:10 Currently or been in a relationship where the following occur: No concerns reported Const General: cooperative, healthy appearing, comfortable and no acute distress Orientation/consciousness: patient oriented x3 HENMT Head: Yes normocephalic Ears: hearing grossly normal bilaterally General nose exam: Normal external nose present Eyes General: appearance normal, both eyes and all related structures Conjunctivae: conjunctivae normal Neck Neck: Yes full ROM and Yes no lymphadenopathy Resp Effort & Inspection: normal respiratory effort Auscultation: clear to auscultation bilaterally, no crackles, no rales, no rhonchi and no wheezes Cardio Rate: regular rate Rhythm: regular rhythm Skin General skin exam: no rashes or lesions noted Neuro General: patient oriented x3 Gait exam (Neuro): Normal gait present Extrem General: Yes normal to inspection, Yes full ROM and No edema Psych Affect: normal affect Attitude: cooperative Insight: Good insight present (Psych) Judgement: Good judgement present (Psych) Coding Level of Care Code Est Pt Level 3 (86359) Diagnoses Hypertension I10 Hyperlipidemia E78.5 Type 2 diabetes mellitus with morbid obesity E11.69; E66.01 Hypothyroidism, unspecified type E03.9 Hypothyroidism type: unspecified Morbid obesity E66.01 Additional Codes PHQ-9 - 17509 - PHQ-9 Billing: Yes ([id number]) Assessment & Plan Assessment & Plan (1) Hypertension: Code(s): I10 - Essential (primary) hypertension Category: Medical Plan: Continue on current blood pressure medication. Avoid salt intake and encourage healthy diet and regular exercise. (2) Hyperlipidemia: Code(s): E78.5 - Hyperlipidemia, unspecified Category: Medical Plan: Avoid foods that are high in cholesterol such as red meat, fried foods, eggs and baked goods. Triglyceride goal of less than 150 and LDL goal of less than 100. Continue on simvastatin 40 mg. Cholesterol at goal on last labs LDL 66 (3) Type 2 diabetes mellitus with morbid obesity: Code(s): E11.69 - Type 2 diabetes mellitus with other specified complication; E66.01 - Morbid (severe) obesity due to excess calories Category: Medical Plan: Decrease the amount of carbohydrates such as pasta, bread, rice, and potatoes and limit the amount of sweets. Although fruits are generally healthy they should be eaten in moderation as they are still high in sugar. Hemoglobin A1c goal of less than 7%. A1c on last labs 7.7%. Currently patient is on Janumet, Jardiance and glipizide. Reinforced dietary and lifestyle modifications and offered referral to data librarian which was declined (4) Hypothyroid: Code(s): E03.9 - Hypothyroidism, unspecified Category: Medical Qualifiers: Hypothyroidism type: unspecified Qualified Code(s): E03.9 - Hypothyroidism, unspecified Plan: Last thyroid labs within normal limits presently on levothyroxine 150 mcg (5) Morbid obesity: Code(s): E66.01 - Morbid (severe) obesity due to excess calories Category: Medical Plan: Healthy diet and regular exercise is encouraged. Plan During the visit, we discussed the management of Type 2 Diabetes Mellitus, emphasizing the importance of dietary changes and medication adherence to improve glycemic control. We also reviewed the stability of hyperlipidemia and hypertension under current medication regimens. The patient was advised to increase physical activity to aid in weight management and reduce peripheral edema. Follow-up blood work is scheduled for March to monitor A1c, cholesterol, and thyroid function. She does not want to come to the office for her next visit given the Winter months and is opting for telehealth but agrees to have blood work done and working scale at that time. This note was constructed using voice recognition software. While every effort has been made to ensure accuracy and bull riveter, still areas may have been included sometimes these areas may affect the content or meeting of the given symptoms. Total time spent caring for the patient today was 20 minutes. This includes time spent before the visit reviewing the chart, time spent during the visit, and time spent after the visit and documentation. Patient was informed and verbally consented to the use of an ambient scribe for clinic note documentation during this visit. Orders: Orders Lipid Panel 3 Months E78.00 - Pure hypercholesterolemia, unspecified Hemoglobin A1c 3 Months E11.65 - Type 2 diabetes mellitus with hyperglycemia TSH reflex Free T4 3 Months E03.9 - Hypothyroidism, unspecified, Z13.29 - Encounter for screening for other suspected endocrine disorder Medications: Refilled empagliflozin (Jardiance) 10 mg PO DAILY 90 tabs 1RF metoprolol succinate ER 25 mg PO DAILY 90 tabs 0RF lisinopril 20 mg PO DAILY 90 tabs 8RF
[2024-12-27 11:07] VITALS: BP 132/76; PULSE 79; TEMP 36.2; O2SAT 94; BMI 57.8
== END 2024-12-27 11:57 | disposition home or self-care (01) ==
LOC: HO.HMCH 11:02
DX: E11.69 Type 2 diabetes mellitus with other specified complication (principal); E66.01 Morbid (severe) obesity due to excess calories; Z68.43 Body mass index [BMI] 50.0-59.9, adult; I10 Essential (primary) hypertension; E78.5 Hyperlipidemia, unspecified; E03.9 Hypothyroidism, unspecified

== ENCOUNTER → 2024-12-27 11:01 | Outpatient (BNVA) | payer OTHER, SELFPAY | DX: I10 Essential (primary) hypertension (principal); E78.5 Hyperlipidemia, unspecified; E11.69 Type 2 diabetes mellitus with other specified complication; E66.01 Morbid (severe) obesity due to excess calories; Z68.43 Body mass index [BMI] 50.0-59.9, adult; E03.9 Hypothyroidism, unspecified; Z79.899 Other long term (current) drug therapy; Z13.30 Encounter for screening examination for mental health and behavioral disorders, unspecified | CPT/HCPCS: 96127; 99212 ==